=== PATIENT | male | born 1990 | race Caucasian/White ===

== ENCOUNTER 2024-03-27 03:37 | Emergency (ER) | payer OTHER, MEDICAID, SELFPAY ==
[2024-03-27 03:52] VITALS: PULSE 85; O2SAT 99
[2024-03-27 03:56] VITALS: BP 122/82; PULSE 86; RESP 16; TEMP 36.6; O2SAT 98; BMI 30.8
[2024-03-27 04:00] VITALS: BP 113/77; PULSE 85; O2SAT 97
[2024-03-27] MEDS: PROPARACAINE 0.5% OPHTH SOL 1 DROPS EYE-LEFT (04:10)
[2024-03-27] MEDS: FLUORESCEIN 1 MG STRIP EYE-LEFT (04:10)
[2024-03-27 04:30] VITALS: BP 117/61; PULSE 79; O2SAT 94
--- NOTE | 2024-03-27 04:47 | ED.EYEPROB ---
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 No welding or exposure to UV light. Since the injury he has had matting and discharge from the left eye. Denies loss of vision to left eye, but painful to open. Related Data Previous Rx's Medication Instructions Recorded erythromycin 5 mg/gram (0.5 %) eye 1 applic EYE-LEFT TID eye 03/27/24 ointment infection 7 days #3.5 grams Allergies Allergy/AdvReac Type Severity Reaction Status Date / Time No Known Drug Allergies Allergy Verified 03/27/24 04:15 Review of Systems Constitutional Constitutional: Denies chills, Denies fever(s) and Denies weakness Eyes Eyes: Denies loss of vision ENT Ears, Nose, Mouth, and Throat: Denies neck pain, Denies sore throat and Denies throat swelling Cardiovascular Cardiovascular: Denies chest pain and Denies dyspnea Respiratory Respiratory: Denies cough and Denies dyspnea Gastrointestinal Gastrointestinal: Denies abdominal pain and Denies nausea Musculoskeletal Musculoskeletal: Denies neck pain Integumentary/Breasts Skin/Breast: Denies rash Neurologic Neurologic: Denies loss of vision and Denies weakness Allergic/Immunologic Allergic/Immunologic: Denies urticaria and Denies throat swelling Patient History Social History Smoking Status: Never smoker Smoking Status: Never smoker alcohol intake frequency: a few times a week Substance Use Type: does not use Exam Initial Vital Signs Initial Vital Signs: Vital Signs Pulse Rate 85 03/27/24 03:52 Pulse Oximetry 99 03/27/24 03:52 Oxygen Delivery Method Room Air 03/27/24 03:52 Const General: cooperative Other: Uncomfortable appearing due to left eye pain and discharge symptoms HENMT Head: atraumatic Ears: external ears normal Nose: external nose normal Face and sinus: face symmetric Mouth: oral mucosae normal Teeth and gingiva: dentition normal Eyes Eyelids: eyelids normal Other: Discharge and discomfort from left eye as per HPI Chest Chest: normal inspection of the chest Resp Effort & Inspection: normal respiratory effort and no respiratory distress GI Inspection: non-distended Palpation: soft and No tender Skin General: no rashes or lesions noted Neuro General: patient alert and no focal motor deficits Psych Attitude: cooperative Judgment: judgment good Course Orders Ordered: ED Orders 03/27/24 04:50 Wound Culture and Gram Stain Stat Discontinued Medications Erythromycin (Erythromycin Ophth 1 Gm Oint) 1 applic EYE-LEFT NOW ONE Stop: 03/27/24 05:10 Last Admin: 03/27/24 05:24 Dose: 1 applic Fluorescein Sodium (Fluorescein 1 Mg Strip) 1 mg EYE-LEFT NOW ONE Stop: 03/27/24 04:06 Last Admin: 03/27/24 04:10 Dose: 1 mg Documented By: JEANIE Gentamicin Sulfate (Gentamicin 0.3% Ophth 5 Ml) 1 drops EYE-LEFT QID MIKAYLA Proparacaine HCl (Proparacaine 0.5% Ophth Radha) 1 drops EYE-LEFT NOW ONE Stop: 03/27/24 04:05 Last Admin: 03/27/24 04:10 Dose: 1 drop Documented By: JEANIE Reevaluation(s) Reevaluation #1: Wood's lamp fluorescein stain evaluation after topical anesthetic to left eye, some fluorescein uptake lateral sclera noted, no corneal abrasions obvious, no grossly obvious hyphema. Visual acuity noted per nursing notes. Discharge present left eye, swab sent for culture. Topical erythromycin 1st dose applied in ED, prescription for further course. Advised to follow up with eye clinic. Return precautions discussed. Vital Signs Vital signs: Vital Signs - 8 hr 03/27/24 03:52 03/27/24 03:56 03/27/24 04:00 Temperature 97.9 F Pulse Rate 85 86 Respiratory Rate 16 Blood Pressure 122/82 113/77 Pulse Oximetry 99 98 Oxygen Delivery Method Room Air Room Air 03/27/24 04:00 03/27/24 04:30 03/27/24 04:30 Temperature Pulse Rate 85 79 Respiratory Rate Blood Pressure 117/61 Pulse Oximetry 97 94 Oxygen Delivery Method Room Air 03/27/24 06:02 Temperature Pulse Rate 80 Respiratory Rate 18 Blood Pressure 139/74 Pulse Oximetry 99 Oxygen Delivery Method Room Air MDM - Eye Problem Differential Diagnosis Differential diagnosis: Likely corneal abrasion, acute iritis, corneal ulcer and ruptured globe Discharge Plan Departure Patient Disposition: Home Clinical Impression: Acute bacterial conjunctivitis of left eye, Abrasion of sclera of left eye Instructions: DI for Eye Contusion Activity Restrictions/Additional Instructions: 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 On fluorescein stain examination there did not seem to be any abrasion to the cornea part of the eye, slight uptake lateral aspect of the sclera (white) of the eye, possibly representing a small abrasion there. There was significant discharge however, culture swab was sent of the purulence sample. Topical erythromycin ointment 1st dose in ED, with prescription for further treatment. Follow up with local eye clinic the next couple of days. Return to the emergency department for any change worsening symptoms or any concerns prior Prescriptions: New erythromycin 5 mg/gram (0.5 %) ointment 1 applic EYE-LEFT TID 7 Days Qty: 3.5 0RF Stand Alone Forms: Patient Portal/API, Work Release Note
--- NOTE | 2024-03-27 05:10 | PC.NURSE ---
Irrigated left eye with 500ml NS. Patient tolerated well.
[2024-03-27] MEDS: ERYTHROMYCIN OPHTH 1 GM OINT 1 APPLIC EYE-LEFT (05:24)
[2024-03-27 06:02] VITALS: BP 139/74; PULSE 80; RESP 18; O2SAT 99
== END 2024-03-27 06:05 | disposition home or self-care (01) ==
PROVIDERS: Emergency Provider Emergency Medicine
DX: H10.32 Unspecified acute conjunctivitis, left eye (principal); S05.8X2A Other injuries of left eye and orbit, initial encounter
CPT/HCPCS: 87070; 87075; 87205; 99282; 99284

== ENCOUNTER 2024-08-11 03:04 | Emergency (ER) | payer OTHER, MEDICAID, SELFPAY ==
[2024-08-11] VITALS (13 sets, daily range): BP systolic 118–184; BP diastolic 75–121; PULSE 78–107; RESP 15–31; TEMP 36.6–37.4; O2SAT 98–100; BMI 30.7
--- NOTE | 2024-08-11 03:38 | EKG_ITS ---
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
--- NOTE | 2024-08-11 03:38 | ED_ITS ---
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 Denies neck pain or back pain. No headache. No weakness to face arm leg. No incontinence symptoms. No history of known CAD or aortic probelms. No history of spinal problems. No fevers, chills, cough, shortness of breath. Left chest pain some worse with isolated left arm movements. No falls, inuries or new activities. Related Data Home Medications Medication Instructions Recorded Confirmed dextroamphetamine-amphetamine 30 1 tab PO BID 07/10/24 07/10/24 mg tablet valacyclovir 500 mg tablet 500 mg PO BID 07/10/24 07/10/24 Previous Rx's Medication Instructions Recorded ondansetron 4 mg disintegrating 4 mg PO Q8H PRN nausea and 07/10/24 tablet vomiting #30 tabs Allergies Allergy/AdvReac Type Severity Reaction Status Date / Time No Known Drug Allergies Allergy Verified 07/10/24 12:00 Review of Systems Review of Systems Narrative: see HPI Patient History Social History Smoking Status: Never smoker Smoking Status: Never smoker alcohol intake frequency: a few times a week Substance Use Type: does not use Exam Narrative Exam Narrative: GENERAL: Well-developed patient, in mild distress. HEAD: Atraumatic. Normocephalic. EYES: Pupils equal round and reactive. Extraocular motions intact. No scleral icterus. No injection or drainage. ENT: Nose without bleeding, purulent drainage. Throat without erythema, tonsillar hypertrophy or exudate. Airway patent. NECK: Trachea midline. Non tender, moves neck easily CARDIOVASCULAR: Regular rate and rhythm without murmurs, gallops, or rubs. RESPIRATORY: Clear to auscultation. Breath sounds equal bilaterally. No wheezes, rales, or rhonchi. Mild tenderness left anterior chest, no skin changes or redness or vesicles or bruising or swelling. GASTROINTESTINAL: Abdomen soft, non-tender, nondistended. EXTREMITIES: No edema or joint tenderness. BACK: Nontender without deformity or crepitance. No flank tenderness. NEURO: AOx3. Motor functions grossly nonfocal SKIN: No rash or erythema of visible areas Initial Vital Signs Initial Vital Signs: Vital Signs Pulse Rate 98 H 08/11/24 03:27 Respiratory Rate 26 H 08/11/24 03:27 Pulse Oximetry 100 08/11/24 03:27 Course Orders Ordered: Discontinued Medications Aspirin (Aspirin 81 Mg Chew Tab) 324 mg PO NOW ONE Stop: 08/11/24 03:31 Last Admin: 08/11/24 04:03 Dose: Not Given Documented By: Haloperidol (Haloperidol 5 Mg/Ml Vial) 5 mg IM NOW ONE Stop: 08/11/24 03:53 Sodium Chloride (Normal Saline 0.9%) 1,000 mls @ 150 mls/hr IV CONT MIKAYLA Ketorolac Tromethamine (Ketorolac 30 Mg/Ml Vial) 15 mg IV NOW ONE Stop: 08/11/24 05:50 Last Admin: 08/11/24 05:52 Dose: 15 mg Documented By: Vital Signs Vital signs: Vital Signs - 8 hr 08/11/24 03:27 08/11/24 03:29 08/11/24 03:29 Temperature Pulse Rate 98 H 99 H Respiratory Rate 26 H 27 H Blood Pressure 123/91 H Pulse Oximetry 100 100 Oxygen Delivery Method 08/11/24 03:30 08/11/24 03:30 08/11/24 03:31 Temperature 98 F Pulse Rate 97 H 107 H Respiratory Rate 31 H 22 Blood Pressure 126/92 H 139/86 Pulse Oximetry 100 100 Oxygen Delivery Method Room Air Room Air 08/11/24 04:00 08/11/24 04:01 08/11/24 04:01 Temperature Pulse Rate 87 93 H Respiratory Rate 25 H 24 Blood Pressure 184/121 H Pulse Oximetry 99 100 Oxygen Delivery Method 08/11/24 04:41 08/11/24 05:00 08/11/24 05:06 Temperature Pulse Rate 88 84 Respiratory Rate 23 23 Blood Pressure 118/75 Pulse Oximetry 100 99 Oxygen Delivery Method 08/11/24 05:06 Temperature Pulse Rate 87 Respiratory Rate 22 Blood Pressure Pulse Oximetry 99 Oxygen Delivery Method Room Air MDM - Chest Pain Lab Data 08/11/24 03:43 08/11/24 03:43 Labs: Lab Results 08/11/24 08/11/24 Range/Units 03:43 05:55 WBC 9.0 (4.5-11.0) X10^3/uL RBC 5.77 (4.5-5.9) X10^6/uL Hgb 16.4 (13.5-17.5) g/dL Hct 47.6 (41-53) % MCV 82.4 (80-100) fL MCH 28.4 (26-34) PG MCHC 34.4 (30-36) % RDW 14.1 (11.6-14.8) % Plt Count 322 (150-400) X10^3/uL Neut % (Auto) 65.8 (50-75) % Lymph % (Auto) 23.4 L (25-40) % Rapides % (Auto) 6.6 (3-14) % Eos % (Auto) 1.0 L (2-4) % Baso % (Auto) 3.2 H (0-2) % Neut # (Auto) 5900 (3476-8940) /uL Lymph # (Auto) 2100 (0043-9368) /uL Rapides # (Auto) 600 (0-900) /uL Eos # (Auto) 100 (0-450) /uL Baso # (Auto) 300 H (0-100) /uL PT 12.2 (9.4-12.5) SECONDS INR 1.1 (0.9-1.3) APTT 35 (25.1-36.5) SECONDS Sodium 137 (137-145) mmol/L Potassium 3.7 (3.4-5.1) mmol/L Chloride 107 (98-107) mmol/L Carbon Dioxide 19 L (22-32) mmol/L BUN 16 (9-20) mg/dL Creatinine 1.05 (0.66-1.25) mg/dL Estimated GFR > 60 (>60) mL/min BUN/Creatinine Ratio 15.2 (6-22) Glucose 108 H (70-100) mg/dL Calcium 9.9 (8.4-10.2) mg/dL Magnesium 2.0 (1.6-2.3) mg/dL Total Bilirubin 1.6 H (0.2-1.3) mg/dL AST 51 (17-59) IU/L ALT 76 H (<50) IU/L Alkaline Phosphatase 98 (38-126) U/L Total Creatine Kinase 135 (55-170) U/L Troponin I < 0.012 < 0.012 (0.01-0.034) ng/mL NT-Pro-B Natriuret Pep < 20 (<125) pg/mL Total Protein 8.2 (6.3-8.2) g/dL Albumin 4.9 (3.5-5.0) g/dL Globulin 3.3 (1.7-4.1) g/dL Albumin/Globulin Ratio 1.5 (1.0-2.8) Lipase 187 (23-300) U/L ECG Data Attestation: I personally reviewed and interpreted this ECG as follows: Interpretation: Normal sinus rhythm rate 88, no obvious ST segment elevation changes. Diffuse T-wave flattening. OR 164, QRS 78, QTC 435. 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 Patient conerns about side effect testoserone. DDx consider ACS, spinal lesion/disc, aortic dissection, stroke, other. EKG without obvious ischemic changes. Trop negative. GFR normal. CT head without contrast. Impressions: ?No acute intracranial abnormality.? See tele radiology report. CT cervical spine. Impressions: ?Mild spondylotic changes of the cervical spine without acute traumatic injury. Left maxillary sinus disease.? See tele radiology report CT angiogram chest abdomen and pelvis. Impressions: ?No pulmonary embolism aortic dissection or aneurysm. No CT findings to explain left arm/left side numbness. ? See tele radiology report Repeat interval troponin also negative, unmeasurable. CT/CTA imaging without obvious brain, spinal, aortic etiologies of symptoms. IV Toradol given, symptoms resolved. Unclear cause symptoms, unclear if related at all to recent testosterone but consider avoiding for now. Possibly musculoskeletal if responsive to NASID, although could have had self limited spontaneous resolution of symptoms. Patient feels better, wants to go home. Further workup as outpatient for now. Return precautions discussed Critical Care Time Critical Care Time Critical Care Time: Yes Total Critical Care Time: 31 Attestation: The high probability of a clinically significant, sudden or life threatening deterioration of the [cardiopulmonary, neurologic, musculoskletal, vascular, spinocolumnar] system(s) required my full and direct attention, intervention and personal management. The aggregate critical care time was [31] minutes. This time is in addition to time spent performing reported procedures but includes the following: [x] Data Review and interpretation [x] Patient assessment and monitoring of vital signs [x] Documentation [x] Medication orders and management Discharge Plan Departure Patient Disposition: Home Clinical Impression: Atypical chest pain, Muscle strain Activity Restrictions/Additional Instructions: Left-sided chest pain with tingling left arm chest and upper torso onset symptoms hours prior to arrival. Screening EKG without obvious ischemic changes, serial blood tests did not show evidence of heart attack at this time. You did seem to have some tenderness to the left pectoralis muscle. It is possible to have muscle strain and associated irritation of nerves as cause of your symptoms. Screening chest x-ray unremarkable. CT chest abdomen and pelvis aortogram showed no aortic injuries, no acute pathology identified. IV Toradol given, improvement in symptoms. Take Motrin as needed for discomfort. Recheck symptoms if persisting next couple of days with your primary care provider. Return earlier to this/nearest emergency department for any change worsening symptoms or any concerns prior Prescriptions: No Action dextroamphetamine-amphetamine 30 mg tablet 1 tab PO BID valacyclovir 500 mg tablet 500 mg PO BID ondansetron 4 mg tablet,disintegrating 4 mg PO Q8H PRN (Reason: nausea and vomiting) Qty: 30 0RF Referrals: Miscellaneous,Doctor, [Primary Care Provider] - Stand Alone Forms: Patient Portal/API
--- NOTE | 2024-08-11 03:43 | DI.CT.S_ITS ---
PROCEDURE: CT ANGIO CHEST ABDOMEN PELVIS INDICATIONS: chest pain TECHNIQUE: Precontrast 5 mm thick sections acquired from the lung apices to the iliac crests. After the administration of intravenous contrast, 2.5 mm thick sections again acquired from the lung apices to the iliac crests. Maximum intensity projection (MIP) oblique sagittal and coronal reformats were then acquired. For radiation dose reduction, the following was used: automated exposure control. COMPARISON: [facility], CT, CT ABDOMEN PELVIS WITH CONTRAST, 01/27/2024, 18:06. FINDINGS: Image quality: Diagnostic. AORTA: No aortic aneurysm. No acute aortic syndrome. CHEST: Lower Neck: No enlarged lymph nodes. Thyroid: No thyroid nodules which require sonographic follow up, per consensus guidelines. Axillae: No enlarged lymph nodes. Chest Wall: Unremarkable. Visualized osseous structures appear intact without acute fracture or focal destructive lesion. No acute compression fractures of the imaged spine. Lungs and Pleura: No pneumothorax or pleural effusions. No consolidation or suspicious nodules. Heart: Heart size is normal. No pericardial effusion. Thoracic Vessels: Pulmonary arteries demonstrate normal size. No evidence for acute pulmonary embolism. Mediastinum and Sylvie: No enlarged lymph nodes. Esophagus: No wall thickening. Small hiatal hernia. ABDOMEN: Liver: No solid mass. Gallbladder: Status post cholecystectomy. Biliary ducts: No biliary dilation. Pancreas: Homogeneous enhancement without focal lesions or pancreatic ductal dilatation. No peripancreatic inflammation or organized fluid collections. Spleen: Splenomegaly. Adrenal Glands: No adrenal nodules. Kidneys and Ureters: No hydronephrosis. No solid mass. No complex renal cystic lesion which requires follow up. Stomach and Bowel: Mild circumferential wall thickening of the descending and sigmoid colon likely related to incomplete distension. No significant pericolonic inflammatory changes. No evidence for small bowel obstruction or associated inflammatory changes. No gastric distension. Normal appendix. Peritoneum: No abnormal intraperitoneal fluid. No free air. Ventral Wall: There is a fat-containing umbilical hernia without acute inflammation. Abdominal Nodes: No retroperitoneal or mesenteric adenopathy by size criteria. Vessels: Inferior vena cava is normal in size. PELVIS: Pelvic Organs: Unremarkable. Bladder: Unremarkable. Pelvic Nodes: No enlarged lymph nodes. Miscellaneous: No inguinal hernias are seen. Bones: Unremarkable. Visualized osseous structures appear intact without acute fracture or focal destructive lesion. No acute compression fractures of the imaged spine. IMPRESSION: CT chest, abdomen, and pelvis without acute abnormality explain patient's left-sided numbness. Specifically, no evidence for aneurysmal dilatation of the thoracic/abdominal aorta or evidence for aortic dissection. No evidence for pulmonary embolism. Status post cholecystectomy. Small hiatal hernia. Mild circumferential wall thickening of the descending and sigmoid colon likely related to incomplete distension. No significant pericolonic stranding. Normal appendix. Fat containing umbilical hernia without acute inflammation. No significant discrepancy with the hourly shift manager radiology preliminary report. Dictated by: Neeraj Chou M.D. on 08/11/2024 at 8:35 Approved by: Neeraj Chou M.D. on 08/11/2024 at 8:46
--- NOTE | 2024-08-11 03:51 | DI.CT.S_ITS ---
PROCEDURE: CT HEAD/BRAIN WO CON INDICATIONS: left sided numbness TECHNIQUE: Noncontrast 4.5 mm thick angled axial sections acquired from the foramen magnum to the vertex, with coronal and sagittal reformats. For radiation dose reduction, the following was used: automated exposure control, adjustment of mA and/or kV according to patient size. COMPARISON: None. FINDINGS: Image quality: Diagnostic. CSF spaces: Basal cisterns are patent. No extra-axial fluid collections. Ventricles are normal in size and shape. Brain: No midline shift. No intracranial masses or hemorrhage. Cheek-white matter interface is normal. Skull and face: Calvarium and visualized facial bones are intact, without suspicious lesions. Sinuses: Visualized sinuses and mastoids are clear. IMPRESSION: CT head without acute intracranial abnormalities. No mass or mass effect visualized. Dictated by: Neeraj Chou M.D. on 08/11/2024 at 7:05 Approved by: Neeraj Chou M.D. on 08/11/2024 at 7:06
--- NOTE | 2024-08-11 03:54 | DI.CT.S_ITS ---
PROCEDURE: CT CERVICAL SPINE WO CON INDICATIONS: left sided numbness arms legs TECHNIQUE: Noncontrast 3 mm thick sections acquired from the skull base to the T4 level. Sagittal and coronal reformats were then constructed. For radiation dose reduction, the following was used: automated exposure control, adjustment of mA and/or kV according to patient size. COMPARISON: None. FINDINGS: Image quality: Diagnostic. Bones: No fractures or dislocations. Visualized superior ribs are intact. No acute fractures or dislocations. No acute compression fractures of the vertebral bodies. Craniocervical junction is intact. C1-C2 relationship is preserved. Visualized superior ribs are intact. Straightening of cervical lordosis which may be due to patient positioning and/or concurrent muscle spasms. Multilevel cervical spondylosis. Soft tissues: Prevertebral soft tissues are normal in thickness. No paravertebral hematomas. No apical pneumothoraces. Left maxillary sinus disease. IMPRESSION: No displaced fracture or traumatic subluxation. Mild straightening of normal cervical lordosis likely related to positioning and/or concurrent muscle spasms. Multilevel cervical spondylosis. Left maxillary sinus disease. No significant discrepancy with the shift mechanic radiology preliminary report. Dictated by: Neeraj Chou M.D. on 08/11/2024 at 7:06 Approved by: Neeraj Chou M.D. on 08/11/2024 at 7:09
[2024-08-11 03:57] LABS: Add Manual Diff / Slide Review NO; Basophils Absolute Auto 300 /uL (0-100); Basophils Percent Auto 3.2 % (0-2); Eosinophils Absolute Auto 100 /uL (0-450); Hematocrit 47.6 % (41-53); Hemoglobin 16.4 g/dL (13.5-17.5); Lymphocytes Absolute Auto 2100 /uL (1100-4500); Lymphocytes Percent Auto 23.4 % (25-40); Mean Corpuscular HGB Conc 34.4 % (30-36); Mean Corpuscular Hemoglobin 28.4 PG (26-34); Mean Corpuscular Volume 82.4 fL (80-100); Monocytes Absolute Auto 600 /uL (0-900); Monocytes Percent Auto 6.6 % (3-14); Neutrophils Absolute Auto 5900 /uL (1500-7000); Neutrophils Percent Auto 65.8 % (50-75); Platelet Count 322 X10^3/uL (150-400); Red Blood Cell Count 5.77 X10^6/uL (4.5-5.9); Red Cell Distribution Width 14.1 % (11.6-14.8)
[2024-08-11 04:17] LABS: INR 1.1 (0.9-1.3); Prothrombin Time 12.2 SECONDS (9.4-12.5)
[2024-08-11 04:20] LABS: PTT Partial Thromboplastin Tim 35 SECONDS (25.1-36.5)
[2024-08-11 04:21] LABS: Alanine Aminotransferase 76 IU/L (<50); Albumin 4.9 g/dL (3.5-5.0); Albumin Globulin Ratio 1.5 (1.0-2.8); Alkaline Phosphatase 98 U/L (38-126); Aspartate Aminotransferase 51 IU/L (17-59); BUN Creatinine Ratio 15.2 (6-22); Bilirubin Total 1.6 mg/dL (0.2-1.3); Blood Urea Nitrogen 16 mg/dL (9-20); Calcium 9.9 mg/dL (8.4-10.2); Carbon Dioxide 19 mmol/L (22-32); Chloride 107 mmol/L (98-107); Creatine Kinase 135 U/L (55-170); Estimated Glomerular Filt Rate > 60 mL/min (>60); Globulin 3.3 g/dL (1.7-4.1); Glucose 108 mg/dL (70-100); HEMOLYSIS < 15 (0-50); Lipase 187 U/L (23-300); Potassium 3.7 mmol/L (3.4-5.1); Sodium 137 mmol/L (137-145); Total Protein 8.2 g/dL (6.3-8.2)
[2024-08-11 04:32] LABS: NT-proBNP (BNP-Adult 18+) < 20 pg/mL (<125); Troponin I < 0.012 ng/mL (0.01-0.034)
--- NOTE | 2024-08-11 04:35 | PC.NURSE ---
Pt BP 184/102. Dr Leiva notified.
[2024-08-11] MEDS: KETOROLAC 30 MG/ML VIAL 15 MG IV (05:52)
[2024-08-11 06:36] LABS: Troponin I < 0.012 ng/mL (0.01-0.034)
== END 2024-08-11 06:52 | disposition home or self-care (01) ==
PROVIDERS: Emergency Provider Emergency Medicine
DX: R07.89 Other chest pain (principal); T14.8XXA Other injury of unspecified body region, initial encounter; Z79.890 Hormone replacement therapy
CPT/HCPCS: 36415; 70450; 71275; 72125; 74174; 80053; 82550; 83690; 83735; 83880; 84484; 85025; 85610; 85730; 93005; 93010; 96374; 99284; J1885; Q9967

== ENCOUNTER 2024-09-29 07:17 | Emergency (ER) | payer OTHER, MEDICAID, SELFPAY ==
[2024-09-29 07:24] VITALS: BP 121/81; PULSE 85; RESP 18; TEMP 36.2; O2SAT 98; BMI 30.7
--- NOTE | 2024-09-29 07:44 | ED.URI ---
HPI - URI/Sore Throat General Chief Complaint: Upper Respiratory Symptoms Stated Complaint: Sinus pain, Congestion Time Seen by Provider: 09/29/24 07:23 Source: patient Mode of arrival: Ambulatory History of Present Illness HPI Narrative: Otherwise healthy 34-year-old gentleman no history of asthma presents with 3-4 days of upper respiratory congestion, sinuses without drainage, no significant throat pain some mild chest tightness minimal cough no fevers he has not had similar symptoms recently. He is concerned as his is currently and he wants to make sure that he has not causing an infection risk for her. Related Data Home Medications Medication Instructions Recorded Confirmed dextroamphetamine-amphetamine 30 1 tab PO BID 07/10/24 07/10/24 mg tablet valacyclovir 500 mg tablet 500 mg PO BID 07/10/24 07/10/24 Previous Rx's Medication Instructions Recorded ondansetron 4 mg disintegrating 4 mg PO Q8H PRN nausea and 07/10/24 tablet vomiting #30 tabs Allergies Allergy/AdvReac Type Severity Reaction Status Date / Time No Known Drug Allergies Allergy Verified 07/10/24 12:00 Review of Systems Constitutional Comments: Pertinent positive and negative findings as per HPI Patient History Social History Smoking Status: Never smoker Smoking Status: Never smoker alcohol intake frequency: a few times a week Substance Use Type: does not use Exam Initial Vital Signs Initial Vital Signs: Vital Signs Temperature 97.2 F L 09/29/24 07:24 Pulse Rate 85 09/29/24 07:24 Respiratory Rate 18 09/29/24 07:24 Blood Pressure 121/81 09/29/24 07:24 Pulse Oximetry 98 09/29/24 07:24 Oxygen Delivery Method Room Air 09/29/24 07:24 General: Healthy appearing, in no acute distress. Able to give a complete and coherent history. Well-nourished well-developed HEENT: Moist mucous membranes, normal sclera with reactive pupils, minor tenderness over frontal sinuses Neck: No cervical adenopathy Respiratory: Lungs are clear to auscultation, no wheezing no rales no rhonchi. Full and symmetrical air movement Cardiac: Regular rate and rhythm no murmurs no bruits Skin: Warm and dry, no rashes Neurologic: Grossly neurologically intact with no obvious asymmetries or abnormalities Psych: Cooperative, appropriate insight and affect Course Vital Signs Vital signs: Vital Signs - 8 hr 09/29/24 07:24 Temperature 97.2 F L Pulse Rate 85 Respiratory Rate 18 Blood Pressure 121/81 Pulse Oximetry 98 Oxygen Delivery Method Room Air MDM - URI/Sore Throat MDM Narrative Medical decision making narrative: 34-year-old gentleman with mild upper respiratory symptoms mostly sinus causing some snoring, looking for suggestions regarding symptomatic treatment. We reviewed saline wash, Sudafed use, Afrin use, anticipated course of recovery, as well as the contraindications for any antibiotics at this time. He will give all of the [id number] treatments a try. At this point there was no indication for lab work, imaging or hospitalization. Questions are answered and he is safe for discharge Discharge Plan Departure Patient Disposition: Home Clinical Impression: Upper respiratory infection Qualifiers: URI type: unspecified viral URI Qualified Code(s): J06.9 - Acute upper respiratory infection, unspecified Instructions: DI for Viral Upper Respiratory Infection -- Adult Activity Restrictions/Additional Instructions: Thank you for coming in today I am sorry that you are suffering with all this sinus congestion. Unfortunately this is a virus, it is going to pass all by itself but it is still going to take another 5 days or so. You likely are still infectious so doing what you can to minimize sneezing and close contact will help avoid transmitting this Using 400 mg of ibuprofen (2 [id number] pills) and 1 Tylenol every 6 hours can be very helpful in controlling pain. For sinus congestion, try pseudofed. This is available zrzz-wvy-yoklria however, you will need to ask the pharmacist for it. I would recommend using the 12 our version 1st thing in the morning, the shorter, 4-6 our version around dinnertime. If you take it too close to bedtime you are not going to sleep well For a couple of days it is safe to use Afrin nasal spray particularly before bed. This helps reduce the swelling in your nose and sinuses so that you are able to breathe and sleep better Consider using a nasal saline rinse product such as Netti Pot. This actually physically rinses out your sinuses which improves overall symptom control If you feel that you are getting worse, worsening headaches developing fevers, new symptoms please feel free to return to the ER Prescriptions: No Action dextroamphetamine-amphetamine 30 mg tablet 1 tab PO BID valacyclovir 500 mg tablet 500 mg PO BID ondansetron 4 mg tablet,disintegrating 4 mg PO Q8H PRN (Reason: nausea and vomiting) Qty: 30 0RF Stand Alone Forms: Patient Portal/API/Survey
== END 2024-09-29 08:02 | disposition home or self-care (01) ==
PROVIDERS: Emergency Provider Emergency Medicine
DX: J06.9 Acute upper respiratory infection, unspecified (principal); R07.89 Other chest pain
CPT/HCPCS: 99281; 99282

== ENCOUNTER 2024-10-20 08:07 | Emergency (ER) | payer OTHER, MEDICAID, SELFPAY ==
[2024-10-20] VITALS (7 sets, daily range): BP systolic 110–124; BP diastolic 63–82; PULSE 82–95; RESP 16–18; TEMP 36.4; O2SAT 97–100; BMI 31.2
--- NOTE | 2024-10-20 08:26 | ED_ITS ---
HPI - SOB/Dyspnea General Chief Complaint: Shortness of Breath/Dyspnea Stated Complaint: per pt has fluid in lungs/pneumonia Time Seen by Provider: 10/20/24 08:25 Source: patient, RN notes reviewed and old records reviewed Mode of arrival: Ambulatory Limitations: no limitations History of Present Illness HPI Narrative: 34-year-old male presents with a about 6 days of wheezing and ?fluid in his chest?. Patient states no fevers recently. He has had increasing wheezing and shortness of breath. He has had productive cough with green. States he does have some chest discomfort in the upper chest and a little bit around to the back. He states no new swelling in his extremities. No nasal congestion. No sore throat. No nausea or vomiting. No diarrhea or constipation. No urinary symptoms. States once before he has had similar symptoms ended up getting breathing treatment and steroids which was very helpful. Patient states he is currently on omeprazole only medication. He has a hiatal hernia that he has follow up to get repaired. He has had prior cholecystectomy. States stopped vaping who week ago. Denies any daily alcohol, denies any recreational drugs. Denies any prior history of known asthma or chronic reactive airway but states that he did vape for awhile. Related Data Home Medications Medication Instructions Recorded Confirmed dextroamphetamine-amphetamine 30 1 tab PO BID 07/10/24 07/10/24 mg tablet valacyclovir 500 mg tablet 500 mg PO BID 07/10/24 07/10/24 Previous Rx's Medication Instructions Recorded ondansetron 4 mg disintegrating 4 mg PO Q8H PRN nausea and 07/10/24 tablet vomiting #30 tabs albuterol sulfate 90 mcg/actuation 2 inh inhalation Q4H PRN shortness 10/20/24 breath activated powder inhaler of breath or wheezing #1 ea azithromycin 250 mg tablet See Rx Instructions PO .COMPLEX #6 10/20/24 tabs prednisone 10 mg tablets in a dose See Rx Instructions PO .COMPLEX 10/20/24 pack #21 ea Allergies Allergy/AdvReac Type Severity Reaction Status Date / Time No Known Drug Allergies Allergy Verified 07/10/24 12:00 Review of Systems Review of Systems ROS Unobtainable: All systems reviewed & are unremarkable except as noted in HPI and below Patient History Social History Smoking Status: Former smoker Smoking Status: Former smoker alcohol intake frequency: 0-2 drinks per day Substance Use Type: does not use Exam Narrative Exam Narrative: GEN: well nourished, well appearing male, alert and oriented x 3, patient appears to be in mild distress. HEENT: Atraumatic, pupils are equal round reactive to light, extraocular movements are intact, nares are clear, there is no conjunctival pallor. Throat is clear without any exudates, erythema, tonsillar enlargement or uvular deviation HEART: Regular rate and rhythm without murmur, clicks, rubs. LUNGS:Lungs good breath sounds bilaterally, mild bilateral expiratory wheezes, no rales, positive for rhonchi, crackles, chest moves symmetrically, no tachypnea or accessory muscle use ABD:bowel sounds normal, soft, non-tender, no guarding, rebound, rigidity, no masses noted, no hepatosplenomegaly :No CVA tenderness MSCL: Non-tender, no muscle atrophy, muscles strength 5/5 upper and lower extremities, full range of motion, normal gait NEURO:CN 2-12 intact, sensation normal Initial Vital Signs Initial Vital Signs: Vital Signs Temperature 97.6 F 10/20/24 08:17 Pulse Rate 84 10/20/24 08:17 Respiratory Rate 16 10/20/24 08:17 Blood Pressure 124/78 10/20/24 08:17 Pulse Oximetry 98 10/20/24 08:17 Oxygen Delivery Method Room Air 10/20/24 08:17 Course Orders Ordered: Discontinued Medications Albuterol/Ipratropium (Albuterol/Ipratropium 3 Ml Ampul) 3 ml INH NOW ONE Stop: 10/20/24 08:35 Last Admin: 10/20/24 08:49 Dose: 3 ml Documented By: TRISTAN Prednisone (Prednisone 20 Mg Tablet) 60 mg PO NOW ONE Stop: 10/20/24 08:35 Last Admin: 10/20/24 08:39 Dose: 60 mg Documented By: TUCKER Vital Signs Vital signs: Vital Signs - 8 hr 10/20/24 08:17 10/20/24 08:17 10/20/24 08:18 Temperature 97.6 F Pulse Rate 84 87 Respiratory Rate 16 Blood Pressure 124/78 124/78 Pulse Oximetry 98 97 Oxygen Delivery Method Room Air Oxygen Flow Rate Fraction of Inspired Oxygen 10/20/24 08:18 10/20/24 08:30 10/20/24 08:30 Temperature Pulse Rate 86 92 H Respiratory Rate Blood Pressure 113/82 Pulse Oximetry 98 98 Oxygen Delivery Method Oxygen Flow Rate Fraction of Inspired Oxygen 10/20/24 08:50 Temperature Pulse Rate 82 Respiratory Rate 18 Blood Pressure Pulse Oximetry 100 Oxygen Delivery Method Room Air Oxygen Flow Rate 0 Fraction of Inspired Oxygen 21 MDM - SOB/Dyspnea Imaging Data Chest x-ray: Radiologist's Impression: [address] [address] XRay Report Signed Patient: August Blankenship MR#: [id number] : 1990 Acct:[id number] Age/Sex: 34 / M Date of Service: 10/20/24 Loc: ED Accession Number: [id number] Procedure: XR chest 2V Ordering Provider: Franci Hawley D.O. PROCEDURE: XR CHEST 2V INDICATIONS: wheeze, rhonchi, green sputum x 6 days TECHNIQUE: 2 views of the chest were acquired. COMPARISON: None. FINDINGS: Surgical changes and devices: None. Lungs and pleura: Mild consolidation of the left lower lobe, posterior to the diaphragm. Mediastinum: Mediastinal contours are normal. Heart size is normal. Bones and chest wall: No suspicious bony abnormalities. Soft tissues appear unremarkable. IMPRESSION: Mild consolidation of the left lower lobe, posterior to the diaphragm. Findings are concerning for pneumonia. Dictated by: Mac Barros M.D. on 10/20/2024 at 9:57 Approved by: Mac Barros M.D. on 10/20/2024 at 9:58 [facility] Narrative Medical decision making narrative: 34-year-old male history of GERD on exam does have expiratory wheezes not so much crackles more rhonchi on exam but he has a picture of his sputum which is clearly green has had about 6 days if symptoms. No fevers that he is aware and no upper respiratory nasal congestion on exam or by history. Patient does note he has a history of vaping has had 1 prior episode where he required steroids and albuterol. Chest x-ray obtained to evaluate for potential pneumonia versus bronchitis. est x-ray shows some left lower lobe consolidation consistent with potential pneumonia Patient was given DuoNeb and oral prednisone on recheck. Wheezes improved although still present. Patient had some improvement. Patient has not been hypoxic no respiratory distress, we will discharge home with albuterol prednisone and azithromycin for community-acquired pneumonia. Discharge Plan Departure Patient Disposition: Home Clinical Impression: Pneumonia Activity Restrictions/Additional Instructions: Follow up for recheck in the next 2-3 days if you are not having any improvement in your symptoms. Your imaging does show some consolidation or signs consistent with a pneumonia in the left side of your chest x-ray. You can use albuterol 2-4 puffs every 4 hours as needed for wheezing, use with a spacer. Can take prednisone until completed. Take oral antibiotics until completed. [facility] in [place]. Please return if you are having worsening chest pain, shortness of breath, coughing up blood, lightheadedness or passing out, fevers, new swelling in your extremities or other new or concerning changes. Prescriptions: New azithromycin 250 mg tablet See Rx Instructions .ROUTE .COMPLEX Qty: 6 0RF Rx Instructions: For 250 mg dose pack: take 500 mg today (day 1), then 250 mg for 4 days (days 2-5) prednisone 10 mg tablets,dose pack See Rx Instructions .ROUTE .COMPLEX Qty: 21 0RF Rx Instructions: orally per package directions albuterol sulfate 90 mcg/actuation aerosol powdr breath activated 2 inh inhalation Q4H PRN (Reason: shortness of breath or wheezing) Qty: 1 0RF No Action dextroamphetamine-amphetamine 30 mg tablet 1 tab PO BID valacyclovir 500 mg tablet 500 mg PO BID ondansetron 4 mg tablet,disintegrating 4 mg PO Q8H PRN (Reason: nausea and vomiting) Qty: 30 0RF Referrals: Joshua Fernandez PA-C [Primary Care Provider] - Stand Alone Forms: Patient Portal/API/Survey
--- NOTE | 2024-10-20 08:34 | DI.RAD.S_ITS ---
PROCEDURE: XR CHEST 2V INDICATIONS: wheeze, rhonchi, green sputum x 6 days TECHNIQUE: 2 views of the chest were acquired. COMPARISON: None. FINDINGS: Surgical changes and devices: None. Lungs and pleura: Mild consolidation of the left lower lobe, posterior to the diaphragm. Mediastinum: Mediastinal contours are normal. Heart size is normal. Bones and chest wall: No suspicious bony abnormalities. Soft tissues appear unremarkable. IMPRESSION: Mild consolidation of the left lower lobe, posterior to the diaphragm. Findings are concerning for pneumonia. Dictated by: Mac Barros M.D. on 10/20/2024 at 9:57 Approved by: Mac Barros M.D. on 10/20/2024 at 9:58
[2024-10-20] MEDS: predniSONE 20 MG TABLET 60 MG PO (08:39)
[2024-10-20] MEDS: ALBUTEROL/IPRATROPIUM 3 ML AMPUL INH (08:49)
== END 2024-10-20 10:26 | disposition home or self-care (01) ==
PROVIDERS: Emergency Provider Emergency Medicine; PCP Physician Assistant Medical
DX: J18.9 Pneumonia, unspecified organism (principal); R06.02 Shortness of breath
CPT/HCPCS: 71046; 94640; 99283

== ENCOUNTER 2024-10-26 20:50 | Emergency (ER) | payer OTHER, MEDICAID, SELFPAY ==
--- NOTE | 2024-10-26 20:53 | DI.RAD.S_ITS ---
PROCEDURE: XR CHEST 2V INDICATIONS: PNEUMONIA 1WK AGO, NOT IMPROVING TECHNIQUE: 2 views of the chest were acquired. COMPARISON: [facility], CT, CT ANGIO CHEST ABDOMEN PELVIS, 08/11/2024, 4:05. [facility], CR, XR CHEST 2V, 10/20/2024, 9:42. FINDINGS: Surgical changes and devices: None. Lungs and pleura: No consolidation identified. No pleural effusions or pneumothorax. Mediastinum: Mediastinal contours are normal. Heart size is normal. Bones and chest wall: No suspicious bony abnormalities. Soft tissues appear unremarkable. IMPRESSION: No consolidation identified. CT chest could be considered for further evaluation. Dictated by: Heron Juares M.D. on 10/26/2024 at 21:32 Approved by: Heron Juares M.D. on 10/26/2024 at 21:35
[2024-10-26 20:54] VITALS: BP 143/101; PULSE 98; O2SAT 98
[2024-10-26 20:57] VITALS: BP 143/101; PULSE 87; RESP 20; TEMP 36.6; O2SAT 99; BMI 31.2
[2024-10-26 21:00] VITALS: PULSE 100; O2SAT 95
--- NOTE | 2024-10-26 21:10 | ED.URI ---
HPI - URI/Sore Throat General Chief Complaint: Shortness of Breath/Dyspnea Stated Complaint: pneumonia, was here 1 wk ago, meds not working Time Seen by Provider: 10/26/24 20:52 Source: patient Mode of arrival: Ambulatory History of Present Illness HPI Narrative: 34-year-old male presents for persistent cough. He was seen on 11-11 for cough and ?fluid on the lungs?. He was found to have left-sided pneumonia and discharged on azithromycin and prednisone. Patient states that he was taking these medications as prescribed and is on his last day of treatment. He has persistent cough and is concerned that he was not cleared the infection. Denies fevers. Related Data Home Medications Medication Instructions Recorded Confirmed dextroamphetamine-amphetamine 30 1 tab PO BID 07/10/24 07/10/24 mg tablet valacyclovir 500 mg tablet 500 mg PO BID 07/10/24 07/10/24 Previous Rx's Medication Instructions Recorded ondansetron 4 mg disintegrating 4 mg PO Q8H PRN nausea and 07/10/24 tablet vomiting #30 tabs albuterol sulfate 90 mcg/actuation 2 inh inhalation Q4H PRN shortness 10/20/24 breath activated powder inhaler of breath or wheezing #1 ea azithromycin 250 mg tablet See Rx Instructions PO .COMPLEX #6 10/20/24 tabs prednisone 10 mg tablets in a dose See Rx Instructions PO .COMPLEX 10/20/24 pack #21 ea doxycycline hyclate 100 mg tablet 100 mg PO BID #10 tabs 10/26/24 Allergies Allergy/AdvReac Type Severity Reaction Status Date / Time No Known Drug Allergies Allergy Verified 07/10/24 12:00 Patient History Social History Smoking Status: Former smoker Smoking Status: Former smoker alcohol intake frequency: 0-2 drinks per day Exam Initial Vital Signs Initial Vital Signs: Vital Signs Pulse Rate 98 H 10/26/24 20:54 Blood Pressure 143/101 H 10/26/24 20:54 Pulse Oximetry 98 10/26/24 20:54 Const: Awake, alert, no acute distress, nontoxic appearing Cardiac: regular rate, regular rhythm RESP: unlabored, questionable trace rhonchi LLL, no wheezing Skin: Warm, Dry, intact, no rashes Neuro: AO x3, CN II-XII grossly intact, moves all extremities Course Orders Ordered: ED Orders 10/26/24 20:53 Chest [XR chest 2V] Stat Discontinued Medications Albuterol/Ipratropium (Albuterol/Ipratropium 3 Ml Ampul) 3 ml INH NOW ONE Stop: 10/26/24 21:16 Last Admin: 10/26/24 21:27 Dose: 3 ml Vital Signs Vital signs: Vital Signs - 8 hr 10/26/24 20:54 10/26/24 20:54 10/26/24 20:57 Temperature 97.8 F Pulse Rate 98 H 87 Respiratory Rate 20 Blood Pressure 143/101 H 143/101 H Pulse Oximetry 98 99 Oxygen Delivery Method Room Air 10/26/24 21:00 10/26/24 21:28 Temperature Pulse Rate 100 H 88 Respiratory Rate 16 Blood Pressure Pulse Oximetry 95 99 Oxygen Delivery Method Room Air Room Air MDM - URI/Sore Throat Differential Diagnosis Differential diagnosis: Likely upper respiratory infection, viral infection and bronchitis Imaging Data Chest x-ray: Radiologist's Impression: PROCEDURE: XR CHEST 2V INDICATIONS: PNEUMONIA 1WK AGO, NOT IMPROVING TECHNIQUE: 2 views of the chest were acquired. COMPARISON: [facility], CT, CT ANGIO CHEST ABDOMEN PELVIS, 08/11/2024, 4:05. [facility], CR, XR CHEST 2V, 10/20/2024, 9:42. FINDINGS: Surgical changes and devices: None. Lungs and pleura: No consolidation identified. No pleural effusions or pneumothorax. Mediastinum: Mediastinal contours are normal. Heart size is normal. Bones and chest wall: No suspicious bony abnormalities. Soft tissues appear unremarkable. IMPRESSION: No consolidation identified. CT chest could be considered for further evaluation. Dictated by: Heron Juares M.D. on 10/26/2024 at 21:32 Approved by: Heron Juares M.D. on 10/26/2024 at 21:35 [facility] Narrative Medical decision making narrative: Patient with a persistent cough and wheezing. On my exam I do not hear any wheezing, however he may have cleared the wheezing after a coughing spell. There are questionable rhonchi in the left lower lobe. Vital signs unremarkable. Chest x-ray shows improvement compared to prior, however since patient is reporting persistent symptoms out of precaution and additional round of antibiotics we will be sent to the pharmacy. Patient was counseled to pickup his inhaler from the pharmacy as previously prescribed. If he was not notice improvement with these medications then he may need additional testing and imaging. Patient informed of imaging findings, in agreement with the plan. Discharge Plan Departure Patient Disposition: Home Clinical Impression: Pneumonia Instructions: DI for Pneumonia -- Adult Activity Restrictions/Additional Instructions: Your x-rays show that your pneumonia is improving. As a precaution we will continue your antibiotics for another 5 days. superintendent terminal the inhaler at the pharmacy as well. If you continue to have symptoms even after this treatment then additional testing may be needed. Prescriptions: New doxycycline hyclate 100 mg tablet 100 mg PO BID Qty: 10 0RF No Action dextroamphetamine-amphetamine 30 mg tablet 1 tab PO BID valacyclovir 500 mg tablet 500 mg PO BID ondansetron 4 mg tablet,disintegrating 4 mg PO Q8H PRN (Reason: nausea and vomiting) Qty: 30 0RF azithromycin 250 mg tablet See Rx Instructions .ROUTE .COMPLEX Qty: 6 0RF Rx Instructions: For 250 mg dose pack: take 500 mg today (day 1), then 250 mg for 4 days (days 2-5) prednisone 10 mg tablets,dose pack See Rx Instructions .ROUTE .COMPLEX Qty: 21 0RF Rx Instructions: orally per package directions albuterol sulfate 90 mcg/actuation aerosol powdr breath activated 2 inh inhalation Q4H PRN (Reason: shortness of breath or wheezing) Qty: 1 0RF Referrals: Joshua Fernandez PA-C [Primary Care Provider] - Stand Alone Forms: Patient Portal/API/Survey
[2024-10-26] MEDS: ALBUTEROL/IPRATROPIUM 3 ML AMPUL INH (21:27)
[2024-10-26 21:28] VITALS: PULSE 88; RESP 16; O2SAT 99
[2024-10-26 21:30] VITALS: PULSE 95; RESP 18; O2SAT 94
[2024-10-26 22:00] VITALS: BP 128/83; PULSE 90; RESP 18; O2SAT 95
== END 2024-10-26 22:03 | disposition home or self-care (01) ==
PROVIDERS: Emergency Provider Emergency Medicine; PCP Physician Assistant Medical
DX: J18.9 Pneumonia, unspecified organism (principal)
CPT/HCPCS: 71046; 94640; 99283

== ENCOUNTER 2025-02-05 03:39 | Emergency (ER) | payer MEDICAID, SELFPAY ==
[2025-02-05] VITALS (8 sets, daily range): BP systolic 156; BP diastolic 99; PULSE 67–99; RESP 16–18; TEMP 37.1; O2SAT 93–100; BMI 30.7
--- NOTE | 2025-02-05 03:41 | ED_ITS ---
HPI - Abdominal Pain General Chief Complaint: Abdominal Pain Stated Complaint: swelling on rt side abd Time Seen by Provider: 02/05/25 03:41 History of Present Illness HPI narrative: Patient is a 34-year-old male past medical history of ADD, GERD, comes into the ED from home for evaluation of right-sided abdominal pain swelling, he states that he woke up at around 11:30 p.m. yesterday started noticing some pain to the right side of his abdomen felt like it is swelling. He states he has had his gallbladder removed, had a normal bowel movement yesterday. He does endorse some nausea no vomiting. Denies any other symptoms headache visual disturbances chest pain fever chills or any other GI/ symptoms at this time. States that nothing is making it better or worse therefore decided into the for further evaluation treatment. Related Data Home Medications Medication Instructions Recorded Confirmed dextroamphetamine-amphetamine 30 1 tab PO BID 07/10/24 07/10/24 mg tablet valacyclovir 500 mg tablet 500 mg PO BID 07/10/24 07/10/24 Previous Rx's Medication Instructions Recorded ondansetron 4 mg disintegrating 4 mg PO Q8H PRN nausea and 07/10/24 tablet vomiting #30 tabs albuterol sulfate 90 mcg/actuation 2 inh inhalation Q4H PRN shortness 10/20/24 breath activated powder inhaler of breath or wheezing #1 ea azithromycin 250 mg tablet See Rx Instructions PO .COMPLEX #6 10/20/24 tabs prednisone 10 mg tablets in a dose See Rx Instructions PO .COMPLEX 10/20/24 pack #21 ea doxycycline hyclate 100 mg tablet 100 mg PO BID #10 tabs 10/26/24 Allergies Allergy/AdvReac Type Severity Reaction Status Date / Time No Known Drug Allergies Allergy Verified 07/10/24 12:00 Review of Systems Review of Systems Narrative: General: Denies fever, chills, weight loss HEENT: Denies headache, eye drainage, eye irritation, head trauma, sore throat, voice change Cardiovascular: Denies any chest pain, palpitations, tachycardia Respiratory: Denies any shortness of breath, cough, wheeze, stridor GI/: Positive abdominal pain, nausea, denies vomiting, diarrhea, bright red blood per rectum, melanotic stools, urinary frequency, urinary retention, dysuria, hematuria MSK: Denies any joint pain, muscle pains, swelling Skin: Denies any rashes, lesions, discoloration Neuro: Denies any headache, lightheadedness, dizziness, fainting, weakness Psych: Denies SI/HI Patient History Social History Smoking Status: Former smoker Smoking Status: Former smoker alcohol intake frequency: 0-2 drinks per day Exam Narrative Exam Narrative: General: Cooperative, comfortable, well-developed, not in acute distress HEENT: Normocephalic, atraumatic, PERRLA, normal sclera, eyelids normal, Neck: Active full range of motion, atraumatic Chest: Normal to inspection, negative crepitus, no overlying erythema ecchymosis Respiratory: Normal respiratory effort, not in acute respiratory distress, clear to auscultation bilaterally negative cough, wheeze, tachypnea, rhonchi, rales Cardiology: Regular rate rhythm negative gallop, murmur, rubs GI/: Normal to inspection, soft, nonrigid, very mild tenderness to palpation to right-sided, exam deferred MSK: Full range of active range of motion of all 4 extremities, atraumatic Skin: No rashes lesions noted Neuro: Alert awake oriented x3, moves all 4 extremities spontaneously, cranial nerves intact, able to answer all questions appropriately follows commands appropriately Psych: Cooperative, negative suicidal or homicidal ideations Initial Vital Signs Initial Vital Signs: Vital Signs Blood Pressure 156/99 H 02/05/25 03:43 Course Orders Ordered: ED Orders 02/05/25 03:45 CT abdomen pelvis w con Stat 02/05/25 03:50 Complete Blood Count AUTO DIFF Stat Comprehensive Metabolic Panel Stat Lipase Stat MAG [Magnesium] Stat Discontinued Medications Sodium Chloride (Normal Saline 0.9%) 1,000 mls @ 1,000 mls/hr IV BOLUS ONE Stop: 02/05/25 04:43 Last Admin: 02/05/25 03:59 Dose: 1,000 mls/hr Documented By: TONY Ketorolac Tromethamine (Ketorolac 30 Mg/Ml Vial) 30 mg IV NOW ONE Stop: 02/05/25 03:45 Last Admin: 02/05/25 03:58 Dose: 30 mg Documented By: TONY Ondansetron HCl (Ondansetron 4 Mg/2 Ml Inj) 4 mg IV NOW ONE Stop: 02/05/25 03:45 Last Admin: 02/05/25 03:58 Dose: 4 mg Documented By: RLC Vital Signs Vital signs: Vital Signs - 8 hr 02/05/25 03:43 02/05/25 03:45 02/05/25 04:00 Temperature 98.7 F Pulse Rate 98 H 99 H Respiratory Rate 16 Blood Pressure 156/99 H 156/99 H Pulse Oximetry 100 99 Oxygen Delivery Method Room Air 02/05/25 04:32 Temperature Pulse Rate 86 Respiratory Rate 18 Blood Pressure Pulse Oximetry 99 Oxygen Delivery Method MDM - Abdominal Pain Differential Diagnosis Differential diagnosis: Likely abdominal pain, acute appendicitis, constipation, diverticulitis, pancreatitis and other (Urinary tract infection electrolyte abnormality) Lab Data 02/05/25 03:50 02/05/25 03:50 Labs: Lab Results 02/05/25 Range/Units 03:50 WBC 8.8 (4.5-11.0) X10^3/uL RBC 5.71 (4.5-5.9) X10^6/uL Hgb 16.2 (13.5-17.5) g/dL Hct 46.9 (41-53) % MCV 82.1 (80-100) fL MCH 28.3 (26-34) PG MCHC 34.5 (30-36) % RDW 15.2 H (11.6-14.8) % Plt Count 311 (150-400) X10^3/uL Neut % (Auto) 57.3 (50-75) % Lymph % (Auto) 32.8 (25-40) % Benson % (Auto) 7.5 (3-14) % Eos % (Auto) 1.0 L (2-4) % Baso % (Auto) 1.4 (0-2) % Neut # (Auto) 5100 (5910-8716) /uL Lymph # (Auto) 2900 (4351-2384) /uL Benson # (Auto) 700 (0-900) /uL Eos # (Auto) 100 (0-450) /uL Baso # (Auto) 100 (0-100) /uL Sodium 136 L (137-145) mmol/L Potassium 3.8 (3.4-5.1) mmol/L Chloride 100 (98-107) mmol/L Carbon Dioxide 22 (22-32) mmol/L BUN 15 (9-20) mg/dL Creatinine 1.00 (0.66-1.25) mg/dL Estimated GFR > 60 (>60) mL/min BUN/Creatinine Ratio 15.0 (6-22) Glucose 115 H (70-100) mg/dL Calcium 10.0 (8.4-10.2) mg/dL Magnesium 2.2 (1.6-2.3) mg/dL Total Bilirubin 1.5 H (0.2-1.3) mg/dL AST 70 H (17-59) IU/L ALT 111 H (<50) IU/L Alkaline Phosphatase 113 (38-126) U/L Total Protein 8.8 H (6.3-8.2) g/dL Albumin 5.2 H (3.5-5.0) g/dL Globulin 3.6 (1.7-4.1) g/dL Albumin/Globulin Ratio 1.4 (1.0-2.8) Lipase 164 (23-300) U/L Imaging Data CT scan - abdomen/pelvis: Radiologist's Impression: Preliminary read showing no acute intra-abdominal abnormality, normal appendix MDM Narrative Medical decision making narrative: 34-year-old without any significant past medical history presenting for right- sided abdominal distention states it started at around 11:30 p.m. yesterday night nothing making it better or worse. Does have a history of cholecystectomy. Does endorse some nausea but no vomiting. Patient had lab work imaging urinalysis performed here in the emergency department. Patient lab work without any acute findings, CT scan without any acute intra abdominal abnormalities appendix normal. Patient had urinalysis performed here which did not show signs of acute urinary tract infection 0625: Patient re-evaluated no new complaints at this time, patient well- appearing nontoxic repeat abdominal exam soft nontender non peritoneal nature. He states that his symptoms have significantly improved/resolved after administration of fluids and medication here. Patient was instructed follow up with primary care in outpatient setting he was given strict return precautions he verbalized understanding of this and agrees to being discharged home with outpatient follow up Discharge Plan Departure Patient Disposition: Home Clinical Impression: Abdominal pain Instructions: DI for Abdominal Pain-Adult Activity Restrictions/Additional Instructions: Please follow up with the primary care doctor Please read the discharge instructions sheet carefully and bring all papers to all doctor follow-up visits, as it may contain information that your doctor may want to see. Disease processes change and evolve, if your symptoms worsen or if you develop any new symptoms that are concerning to you please return for evaluation. Your evaluation today does not show any evidence of any life- threatening/serious illnesses requiring admission to the hospital or surgery. Please follow-up with your doctor for re-evaluation in approximately 1 day. Seek immediate medical attention for any worrisome symptoms. *If you do not have a primary care provider please contact the [facility] Resource line at [phone]. They will ask some questions about your medical history and help get you set up with a doctor in the community. Prescriptions: No Action dextroamphetamine-amphetamine 30 mg tablet 1 tab PO BID valacyclovir 500 mg tablet 500 mg PO BID ondansetron 4 mg tablet,disintegrating 4 mg PO Q8H PRN (Reason: nausea and vomiting) Qty: 30 0RF azithromycin 250 mg tablet See Rx Instructions .ROUTE .COMPLEX Qty: 6 0RF Rx Instructions: For 250 mg dose pack: take 500 mg today (day 1), then 250 mg for 4 days (days 2-5) prednisone 10 mg tablets,dose pack See Rx Instructions .ROUTE .COMPLEX Qty: 21 0RF Rx Instructions: orally per package directions albuterol sulfate 90 mcg/actuation aerosol powdr breath activated 2 inh inhalation Q4H PRN (Reason: shortness of breath or wheezing) Qty: 1 0RF doxycycline hyclate 100 mg tablet 100 mg PO BID Qty: 10 0RF Referrals: Joshua Fernandez PA-C [Primary Care Provider] - Stand Alone Forms: Patient Portal/API/Survey
--- NOTE | 2025-02-05 03:45 | DI.CT.S_ITS ---
PROCEDURE: CT ABDOMEN PELVIS W CON INDICATIONS: RLQ abd pain TECHNIQUE: After the administration of intravenous contrast, axial sections acquired from the lung bases to the pubic symphysis. Coronal and sagittal reformats were performed. For radiation dose reduction, the following was used: automated exposure control, adjustment of mA and/or kV according to patient size. COMPARISON: [facility], CT, CT ANGIO CHEST ABDOMEN PELVIS, 08/11/2024, 4:05. FINDINGS: Image quality: Diagnostic Lower chest: Lower lungs are unremarkable. Trace hiatal hernia. Mildly patulous distal esophagus Liver: Unremarkable Gallbladder and biliary system: Cholecystectomy clips Nondilated biliary system Pancreas: No ductal dilation Spleen: Splenomegaly. Adrenals: No discrete nodules Kidneys: No solid mass. No hydronephrosis. Vessels and lymph nodes: Main portal vein is patent. No abdominal aortic aneurysm. No pathologic lymph nodes by size criteria. Bowel and peritoneum: No small bowel obstruction. No pathologic ascites. No abscess. Nondilated appendix. Body wall: Tiny fat containing umbilical hernia. Small fat containing fat containing inguinal hernias. Pelvis: Bladder is unremarkable. Prostate is unremarkable on limited CT evaluation. Bones: No aggressive appearing osseous finding IMPRESSION: No acute abdominal pelvic abnormalities. Non dilated appendix. Splenomegaly. Other findings above. No significant changes to the preliminary report. Dictated by: Brandt Earl M.D. on 02/05/2025 at 7:37 Approved by: Brandt Earl M.D. on 02/05/2025 at 7:41
[2025-02-05] MEDS: KETOROLAC 30 MG/ML VIAL IV (03:58)
[2025-02-05] MEDS: ONDANSETRON 4 MG/2 ML INJ IV (03:58)
[2025-02-05] MEDS: SODIUM CHLORIDE 0.9% 1,000 ML 1000 ML IV (03:59)
[2025-02-05 04:07] LABS: Add Manual Diff / Slide Review NO; Basophils Absolute Auto 100 /uL (0-100); Basophils Percent Auto 1.4 % (0-2); Eosinophils Absolute Auto 100 /uL (0-450); Hematocrit 46.9 % (41-53); Hemoglobin 16.2 g/dL (13.5-17.5); Lymphocytes Absolute Auto 2900 /uL (1100-4500); Lymphocytes Percent Auto 32.8 % (25-40); Mean Corpuscular HGB Conc 34.5 % (30-36); Mean Corpuscular Hemoglobin 28.3 PG (26-34); Mean Corpuscular Volume 82.1 fL (80-100); Monocytes Absolute Auto 700 /uL (0-900); Monocytes Percent Auto 7.5 % (3-14); Neutrophils Absolute Auto 5100 /uL (1500-7000); Neutrophils Percent Auto 57.3 % (50-75); Platelet Count 311 X10^3/uL (150-400); Red Blood Cell Count 5.71 X10^6/uL (4.5-5.9); Red Cell Distribution Width 15.2 % (11.6-14.8); White Blood Cell Count 8.8 X10^3/uL (4.5-11.0)
[2025-02-05 04:12] LABS: Alanine Aminotransferase 111 IU/L (<50); Albumin 5.2 g/dL (3.5-5.0); Albumin Globulin Ratio 1.4 (1.0-2.8); Alkaline Phosphatase 113 U/L (38-126); Aspartate Aminotransferase 70 IU/L (17-59); Bilirubin Total 1.5 mg/dL (0.2-1.3); Blood Urea Nitrogen 15 mg/dL (9-20); Carbon Dioxide 22 mmol/L (22-32); Chloride 100 mmol/L (98-107); Estimated Glomerular Filt Rate > 60 mL/min (>60); Globulin 3.6 g/dL (1.7-4.1); Glucose 115 mg/dL (70-100); HEMOLYSIS < 15 (0-50); Lipase 164 U/L (23-300); Magnesium 2.2 mg/dL (1.6-2.3); Potassium 3.8 mmol/L (3.4-5.1); Sodium 136 mmol/L (137-145); Total Protein 8.8 g/dL (6.3-8.2)
== END 2025-02-05 06:40 | disposition home or self-care (01) ==
PROVIDERS: Emergency Provider Student in an Organized Health Care Education/Training Program; PCP Physician Assistant Medical
DX: R10.9 Unspecified abdominal pain (principal); R11.0 Nausea
CPT/HCPCS: 36415; 74177; 80053; 81003; 83690; 83735; 85025; 96361; 96374; 96375; 99284; J1885; J2405; Q9967

== ENCOUNTER 2025-02-23 14:48 | Emergency (ER) | payer OTHER, SELFPAY ==
[2025-02-23 15:07] VITALS: BP 148/97; PULSE 98; RESP 16; TEMP 36.4; O2SAT 100; BMI 30.7
[2025-02-23 16:03] VITALS: BP 136/84; PULSE 101; RESP 22; O2SAT 97
--- NOTE | 2025-02-23 16:04 | ED.GENADULT ---
HPI - General Adult <Agapito Nolen PA-C - Last Filed: 02/23/25 20:37> General Chief complaint: Dizziness Stated complaint: dizziness, leg px Time Seen by Provider: 02/23/25 15:15 Source: patient Mode of arrival: Ambulatory History of Present Illness HPI narrative: 34-year-old male presents to the ED with 1 day of nausea, lightheadedness, chest pain, bilateral leg numbness. Patient states he took a libido drug yesterday which he bought at the [employer], called jet black that he took for the 1st time yesterday evening. No other suspicious foods, medications. Patient denies alcohol use, drug use. No fever, shortness of breath, vomiting. Patient appears to be spitting into a vomit bag in the ED, however is not vomiting. Patient does endorse right-sided abdominal pain. Endorses history of GERD, does state that his GERD has been exacerbated recently. Related Data Home Medications Medication Instructions Recorded Confirmed dextroamphetamine-amphetamine 30 1 tab PO BID 07/10/24 07/10/24 mg tablet valacyclovir 500 mg tablet 500 mg PO BID 07/10/24 07/10/24 Previous Rx's Medication Instructions Recorded ondansetron 4 mg disintegrating 4 mg PO Q8H PRN nausea and 07/10/24 tablet vomiting #30 tabs albuterol sulfate 90 mcg/actuation 2 inh inhalation Q4H PRN shortness 10/20/24 breath activated powder inhaler of breath or wheezing #1 ea azithromycin 250 mg tablet See Rx Instructions PO .COMPLEX #6 10/20/24 tabs prednisone 10 mg tablets in a dose See Rx Instructions PO .COMPLEX 10/20/24 pack #21 ea doxycycline hyclate 100 mg tablet 100 mg PO BID #10 tabs 10/26/24 Allergies Allergy/AdvReac Type Severity Reaction Status Date / Time No Known Drug Allergies Allergy Verified 07/10/24 12:00 Review of Systems <Agapito Nolen PA-C - Last Filed: 02/23/25 20:37> Constitutional Constitutional: Reports chills, Denies fatigue, Denies fever(s), Denies frequent falls, Denies lethargy and Denies weakness Eyes Eyes: Denies change in vision, Denies eye discharge, Denies irritation and Denies loss of vision ENT Ears, Nose, Mouth, and Throat: Denies change in voice, Denies dizziness, Denies neck pain, Denies sore throat and Denies throat swelling Cardiovascular Cardiovascular: Reports chest pain, Denies irregular heart rhythm, Reports lightheadedness, Denies palpitations, Denies dyspnea, Denies dyspnea on exertion and Denies orthopnea Respiratory Respiratory: Denies cough, Denies dyspnea, Denies dyspnea on exertion and Denies wheezing Gastrointestinal Gastrointestinal: Reports abdominal pain, Denies change in bowel habits, Denies diarrhea, Reports nausea and Denies vomiting Musculoskeletal Musculoskeletal: Denies neck pain and Denies numbness Integumentary/Breasts Skin/Breast: Denies pruritus, Denies erythema, Denies rash and Denies wounds Neurologic Neurologic: Denies behavioral changes, Denies confusion, Denies dizziness, Denies frequent falls, Denies loss of vision, Denies numbness and Denies weakness Psychiatric Psychiatric: Denies anxiety, Denies behavioral changes, Denies confusion, Denies depression, Denies homicidal ideation and Denies suicidal ideation Endocrine Endocrine: Denies fatigue, Denies flushing and Denies palpitations Hematologic/Lymphatic Hematologic/Lymphatic: Denies easy bruising Allergic/Immunologic Allergic/Immunologic: Denies urticaria, Denies throat swelling and Denies wheezing Patient History <Agapito Nolen PA-C - Last Filed: 02/23/25 20:37> tobacco type: smokeless tobacco alcohol intake frequency: 0-2 drinks per day Exam <Agapito Nolen PA-C - Last Filed: 02/23/25 20:37> Narrative Exam Narrative: Const General:?cooperative, healthy appearing and comfortable [facility] Head:?normal to inspection Ears:?hearing grossly normal bilaterally Nose:?external nose normal Face and sinus:?normal facial exam and sinuses nontender Mouth:?oral mucosae normal Throat:?posterior oropharynx normal Eyes General:?appearance normal, both eyes and all related structures Neck Neck:?normal visual inspection and no lymphadenopathy noted Resp Effort & Inspection:?normal respiratory effort Auscultation:?clear to auscultation bilaterally Cardio Rate:?regular rate Rhythm:?regular rhythm GI Neuro General:?patient alert, patient awake and patient oriented x3 Initial Vital Signs Initial Vital Signs: Vital Signs Temperature 97.6 F 02/23/25 15:07 Pulse Rate 98 H 02/23/25 15:07 Respiratory Rate 16 02/23/25 15:07 Blood Pressure 148/97 H 02/23/25 15:07 Pulse Oximetry 100 02/23/25 15:07 Oxygen Delivery Method Room Air 02/23/25 15:07 <Gideon Leiva MD - Last Filed: 02/23/25 22:03> Initial Vital Signs Initial Vital Signs: Vital Signs Temperature 97.6 F 02/23/25 15:07 Pulse Rate 98 H 02/23/25 15:07 Respiratory Rate 16 02/23/25 15:07 Blood Pressure 148/97 H 02/23/25 15:07 Pulse Oximetry 100 02/23/25 15:07 Oxygen Delivery Method Room Air 02/23/25 15:07 Course <Agapito Nolen PA-C - Last Filed: 02/23/25 20:37> Orders Ordered: ED Orders 02/23/25 16:08 XR chest 1V Stat EKG-12 Lead Stat 02/23/25 16:22 Complete Blood Count AUTO DIFF Stat Comprehensive Metabolic Panel Stat Lipase Stat Magnesium Stat NT-proBNP (BNP-Adult 18+) Stat PTT Partial Thromboplastin Calvin Stat Prothrombin Time INR Stat Troponin & CK Cardiac Panel Stat 02/23/25 17:09 UA dip and micro [Urinalysis and Microscopic] Stat Urine Drug Screen, Rapid Stat Discontinued Medications Aspirin (Aspirin 81 Mg Chew Tab) 324 mg PO NOW ONE Stop: 02/23/25 16:09 Last Admin: 02/23/25 16:39 Dose: 324 mg Documented By: PARRISH Sodium Chloride (Normal Saline 0.9%) 1,000 mls @ 1,000 mls/hr IV BOLUS ONE Stop: 02/23/25 17:36 Last Infusion: 02/23/25 17:26 Dose: Infused Documented By: Admin: 02/23/25 16:43 Dose: 1,000 mls/hr Documented By: SPF Ondansetron HCl (Ondansetron 4 Mg/2 Ml Inj) 4 mg IV NOW ONE Stop: 02/23/25 16:38 Last Admin: 02/23/25 16:43 Dose: 4 mg Documented By: SPF Vital Signs Vital signs: Vital Signs - 8 hr 02/23/25 15:07 02/23/25 16:03 02/23/25 17:10 Temperature 97.6 F Pulse Rate 98 H 101 H 79 Respiratory Rate 16 22 Blood Pressure 148/97 H 136/84 133/85 Pulse Oximetry 100 97 Oxygen Delivery Method Room Air Room Air 02/23/25 17:32 02/23/25 19:36 Temperature Pulse Rate 82 75 Respiratory Rate 22 18 Blood Pressure 139/80 127/79 Pulse Oximetry 100 100 Oxygen Delivery Method Room Air <Gideon Leiva MD - Last Filed: 02/23/25 22:03> Orders Ordered: ED Orders 02/23/25 16:08 XR chest 1V Stat EKG-12 Lead Stat 02/23/25 16:22 Complete Blood Count AUTO DIFF Stat Comprehensive Metabolic Panel Stat Lipase Stat Magnesium Stat NT-proBNP (BNP-Adult 18+) Stat PTT Partial Thromboplastin Calvin Stat Prothrombin Time INR Stat Troponin & CK Cardiac Panel Stat 02/23/25 17:09 UA dip and micro [Urinalysis and Microscopic] Stat Urine Drug Screen, Rapid Stat Discontinued Medications Aspirin (Aspirin 81 Mg Chew Tab) 324 mg PO NOW ONE Stop: 02/23/25 16:09 Last Admin: 02/23/25 16:39 Dose: 324 mg Documented By: PARRISH Sodium Chloride (Normal Saline 0.9%) 1,000 mls @ 1,000 mls/hr IV BOLUS ONE Stop: 02/23/25 17:36 Last Infusion: 02/23/25 17:26 Dose: Infused Documented By: Admin: 02/23/25 16:43 Dose: 1,000 mls/hr Documented By: PARRISH Ondansetron HCl (Ondansetron 4 Mg/2 Ml Inj) 4 mg IV NOW ONE Stop: 02/23/25 16:38 Last Admin: 02/23/25 16:43 Dose: 4 mg Documented By: PARRISH Vital Signs Vital signs: Vital Signs - 8 hr 02/23/25 15:07 02/23/25 16:03 02/23/25 17:10 Temperature 97.6 F Pulse Rate 98 H 101 H 79 Respiratory Rate 16 22 Blood Pressure 148/97 H 136/84 133/85 Pulse Oximetry 100 97 Oxygen Delivery Method Room Air Room Air 02/23/25 17:32 02/23/25 19:36 Temperature Pulse Rate 82 75 Respiratory Rate 22 18 Blood Pressure 139/80 127/79 Pulse Oximetry 100 100 Oxygen Delivery Method Room Air Medical Decision Making <Agapito Nolen PA-C - Last Filed: 02/23/25 20:37> Lab Data 02/23/25 16:22 02/23/25 16:22 Labs: Lab Results 02/23/25 02/23/25 02/23/25 Range/Units 16:22 17:09 17:09 WBC 8.6 (4.5-11.0) X10^3/uL RBC 5.37 (4.5-5.9) X10^6/uL Hgb 15.1 (13.5-17.5) g/dL Hct 44.4 (41-53) % MCV 82.6 (80-100) fL MCH 28.1 (26-34) PG MCHC 34.0 (30-36) % RDW 14.8 (11.6-14.8) % Plt Count 287 (150-400) X10^3/uL Neut % (Auto) 70.3 (50-75) % Lymph % (Auto) 22.3 L (25-40) % Rains % (Auto) 6.6 (3-14) % Eos % (Auto) 0.3 L (2-4) % Baso % (Auto) 0.5 (0-2) % Neut # (Auto) 6100 (6733-2142) /uL Lymph # (Auto) 1900 (2985-9494) /uL Rains # (Auto) 600 (0-900) /uL Eos # (Auto) 0 (0-450) /uL Baso # (Auto) 0 (0-100) /uL PT 12.0 (9.4-12.5) SECONDS INR 1.1 (0.9-1.3) APTT 34 (25.1-36.5) SECONDS Sodium 138 (137-145) mmol/L Potassium 3.4 (3.4-5.1) mmol/L Chloride 104 (98-107) mmol/L Carbon Dioxide 20 L (22-32) mmol/L BUN 13 (9-20) mg/dL Creatinine 0.92 (0.66-1.25) mg/dL Estimated GFR > 60 (>60) mL/min BUN/Creatinine Ratio 14.1 (6-22) Glucose 107 H (70-100) mg/dL Calcium 9.9 (8.4-10.2) mg/dL Magnesium 2.0 (1.6-2.3) mg/dL Total Bilirubin 1.4 H (0.2-1.3) mg/dL AST 49 (17-59) IU/L ALT 82 H (<50) IU/L Alkaline Phosphatase 106 (38-126) U/L Total Creatine Kinase 73 (55-170) U/L Troponin I < 0.012 (0.01-0.034) ng/mL NT-Pro-B Natriuret Pep < 20 (<125) pg/mL Total Protein 8.5 H (6.3-8.2) g/dL Albumin 5.0 (3.5-5.0) g/dL Globulin 3.5 (1.7-4.1) g/dL Albumin/Globulin Ratio 1.4 (1.0-2.8) Lipase 148 (23-300) U/L Urine Color Yellow Urine Appearance Clear Urine pH 7.5 Normal (4.5-8.0) Ur Specific Abrams 1.010 (1.000-1.035) Urine Protein Negative (Negative) Urine Glucose (UA) Negative (Negative) g/dL Urine Ketones Negative (NEGATIVE) Urine Occult Blood Negative (Negative) Urine Nitrate Negative (Negative) Urine Bilirubin Negative (NEGATIVE) Urine Urobilinogen 0.2 (0.2) E.U./dL Ur Leukocyte Esterase Negative (NEGATIVE) Urine RBC None seen (0-5/HPF) Urine WBC None seen (0-5/HPF) Ur Squamous Epith Cells None seen (0-5/HPF) Urine Bacteria None seen (None) Ur Culture Indicated? Cult not indicated Vol Urine Centrifuged 10ml (spun) U Opiates 300ng/mL cut Negative (Negative) Ur Oxycodone Screen Negative (Negative) Urine Methadone Screen Negative (Negative) Ur Barbiturates Screen Negative (Negative) U Tricyclic Antidepress Negative (Negative) Ur Phencyclidine Scrn Negative (Negative) Ur Amphetamines Screen Negative (Negative) U Methamphetamines Scrn Positive H (Negative) Ur MDMA Scrn (Ecstasy) Negative (Negative) U Benzodiazepines Scrn Negative (Negative) Urine Cocaine Screen Negative (Negative) U Marijuana (THC) Screen Negative (Negative) Urine Specific Abrams Normal (Normal) Ur Creatinine Normal (Normal) [facility] Narrative Medical decision making narrative: 34-year-old male presents to the ED with 1 day of nausea, lightheadedness, chest pain, bilateral leg numbness. Will workup with chest pain, obtain UA, UDS. Patient given IV fluids on request. Zofran for nausea. Will reassess. Cardiac workup is unremarkable. Urine drug screen positive for methamphetamines. Patient improved with Zofran and IV fluids. Discussed findings with patient. Patient suspects that the supplement that he took yesterday was the source of the meth. Counseled patient to avoid taking non FDA approved supplements since they might have dangerous ingredients. Patient verbalized understanding. ED return precautions were discussed with patient. Patient verbalized understanding. Medical records reviewed: Yes <Gideon Leiva MD - Last Filed: 02/23/25 22:03> Lab Data Labs: Lab Results 02/23/25 02/23/25 02/23/25 Range/Units 16:22 17:09 17:09 WBC 8.6 (4.5-11.0) X10^3/uL RBC 5.37 (4.5-5.9) X10^6/uL Hgb 15.1 (13.5-17.5) g/dL Hct 44.4 (41-53) % MCV 82.6 (80-100) fL MCH 28.1 (26-34) PG MCHC 34.0 (30-36) % RDW 14.8 (11.6-14.8) % Plt Count 287 (150-400) X10^3/uL Neut % (Auto) 70.3 (50-75) % Lymph % (Auto) 22.3 L (25-40) % Rains % (Auto) 6.6 (3-14) % Eos % (Auto) 0.3 L (2-4) % Baso % (Auto) 0.5 (0-2) % Neut # (Auto) 6100 (0271-4216) /uL Lymph # (Auto) 1900 (2503-9363) /uL Rains # (Auto) 600 (0-900) /uL Eos # (Auto) 0 (0-450) /uL Baso # (Auto) 0 (0-100) /uL PT 12.0 (9.4-12.5) SECONDS INR 1.1 (0.9-1.3) APTT 34 (25.1-36.5) SECONDS Sodium 138 (137-145) mmol/L Potassium 3.4 (3.4-5.1) mmol/L Chloride 104 (98-107) mmol/L Carbon Dioxide 20 L (22-32) mmol/L BUN 13 (9-20) mg/dL Creatinine 0.92 (0.66-1.25) mg/dL Estimated GFR > 60 (>60) mL/min BUN/Creatinine Ratio 14.1 (6-22) Glucose 107 H (70-100) mg/dL Calcium 9.9 (8.4-10.2) mg/dL Magnesium 2.0 (1.6-2.3) mg/dL Total Bilirubin 1.4 H (0.2-1.3) mg/dL AST 49 (17-59) IU/L ALT 82 H (<50) IU/L Alkaline Phosphatase 106 (38-126) U/L Total Creatine Kinase 73 (55-170) U/L Troponin I < 0.012 (0.01-0.034) ng/mL NT-Pro-B Natriuret Pep < 20 (<125) pg/mL Total Protein 8.5 H (6.3-8.2) g/dL Albumin 5.0 (3.5-5.0) g/dL Globulin 3.5 (1.7-4.1) g/dL Albumin/Globulin Ratio 1.4 (1.0-2.8) Lipase 148 (23-300) U/L Urine Color Yellow Urine Appearance Clear Urine pH 7.5 Normal (4.5-8.0) Ur Specific Abrams 1.010 (1.000-1.035) Urine Protein Negative (Negative) Urine Glucose (UA) Negative (Negative) g/dL Urine Ketones Negative (NEGATIVE) Urine Occult Blood Negative (Negative) Urine Nitrate Negative (Negative) Urine Bilirubin Negative (NEGATIVE) Urine Urobilinogen 0.2 (0.2) E.U./dL Ur Leukocyte Esterase Negative (NEGATIVE) Urine RBC None seen (0-5/HPF) Urine WBC None seen (0-5/HPF) Ur Squamous Epith Cells None seen (0-5/HPF) Urine Bacteria None seen (None) Ur Culture Indicated? Cult not indicated Vol Urine Centrifuged 10ml (spun) U Opiates 300ng/mL cut Negative (Negative) Ur Oxycodone Screen Negative (Negative) Urine Methadone Screen Negative (Negative) Ur Barbiturates Screen Negative (Negative) U Tricyclic Antidepress Negative (Negative) Ur Phencyclidine Scrn Negative (Negative) Ur Amphetamines Screen Negative (Negative) U Methamphetamines Scrn Positive H (Negative) Ur MDMA Scrn (Ecstasy) Negative (Negative) U Benzodiazepines Scrn Negative (Negative) Urine Cocaine Screen Negative (Negative) U Marijuana (THC) Screen Negative (Negative) Urine Specific Abrams Normal (Normal) Ur Creatinine Normal (Normal) Discharge Plan Departure Patient Disposition: Home Clinical Impression: Chest pain Qualifiers: Chest pain type: unspecified Qualified Code(s): R07.9 - Chest pain, unspecified Instructions: DI for Atypical Chest Pain Activity Restrictions/Additional Instructions: You were evaluated in the emergency room for chest pain, nausea and weakness. Your urine did test positive today for methamphetamines. Your workup today was otherwise normal. It is unclear what exactly caused your symptoms, however it could have been the supplement that you took last night for the 1st time. You were advised to stay away from the supplements that are not FDA regulated, since the ingredients list could be dangerous. We are glad that you are feeling much better now. Please follow-up with your PCP as soon as possible. Return to the ED if you have worsening symptoms. Prescriptions: No Action dextroamphetamine-amphetamine 30 mg tablet 1 tab PO BID valacyclovir 500 mg tablet 500 mg PO BID ondansetron 4 mg tablet,disintegrating 4 mg PO Q8H PRN (Reason: nausea and vomiting) Qty: 30 0RF azithromycin 250 mg tablet See Rx Instructions .ROUTE .COMPLEX Qty: 6 0RF Rx Instructions: For 250 mg dose pack: take 500 mg today (day 1), then 250 mg for 4 days (days 2-5) prednisone 10 mg tablets,dose pack See Rx Instructions .ROUTE .COMPLEX Qty: 21 0RF Rx Instructions: orally per package directions albuterol sulfate 90 mcg/actuation aerosol powdr breath activated 2 inh inhalation Q4H PRN (Reason: shortness of breath or wheezing) Qty: 1 0RF doxycycline hyclate 100 mg tablet 100 mg PO BID Qty: 10 0RF Referrals: Joshua Fernandez PA-C [Primary Care Provider] - Stand Alone Forms: Patient Portal/API/Survey ED Sign-out <Gideon Leiva MD - Last Filed: 02/23/25 22:03> Cosign ED Attending Myleneature Attestation: I was immediately available in the department for consultation. This documentation has been reviewed and I agree with assessment and plan. Supervised by Gideon Leiva MD
--- NOTE | 2025-02-23 16:08 | DI.RAD.S_ITS ---
PROCEDURE: XR CHEST 1V INDICATIONS: chest pain TECHNIQUE: One view of the chest was acquired. COMPARISON: [facility], CR, XR CHEST 2V, 10/26/2024, 20:50. [facility], CR, XR CHEST 2V, 10/20/2024, 9:42. FINDINGS: Surgical changes and devices: None. Lungs and pleura: Low lung volumes without focal consolidation. No pleural effusions or pneumothorax. Mediastinum: Mediastinal contours appear normal. Heart size is normal. Bones and chest wall: No suspicious bony lesions. Overlying soft tissues appear unremarkable. IMPRESSION: No acute cardiothoracic process. Dictated by: Martín Cody M.D. on 02/23/2025 at 16:55 Approved by: Martín Cody M.D. on 02/23/2025 at 16:55
--- NOTE | 2025-02-23 16:17 | EKG_ITS ---
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
--- NOTE | 2025-02-23 16:17 | EKG_ITS ---
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
[2025-02-23 16:37] LABS: Add Manual Diff / Slide Review NO; Basophils Absolute Auto 0 /uL (0-100); Basophils Percent Auto 0.5 % (0-2); Eosinophils Absolute Auto 0 /uL (0-450); Eosinophils Percent Auto 0.3 % (2-4); Hematocrit 44.4 % (41-53); Hemoglobin 15.1 g/dL (13.5-17.5); Lymphocytes Absolute Auto 1900 /uL (1100-4500); Lymphocytes Percent Auto 22.3 % (25-40); Mean Corpuscular Hemoglobin 28.1 PG (26-34); Mean Corpuscular Volume 82.6 fL (80-100); Monocytes Absolute Auto 600 /uL (0-900); Monocytes Percent Auto 6.6 % (3-14); Neutrophils Absolute Auto 6100 /uL (1500-7000); Neutrophils Percent Auto 70.3 % (50-75); Platelet Count 287 X10^3/uL (150-400); Red Blood Cell Count 5.37 X10^6/uL (4.5-5.9); Red Cell Distribution Width 14.8 % (11.6-14.8); White Blood Cell Count 8.6 X10^3/uL (4.5-11.0)
[2025-02-23] MEDS: ASPIRIN 81 MG CHEW TAB 324 MG PO (16:39)
[2025-02-23] MEDS: ONDANSETRON 4 MG/2 ML INJ IV (16:43)
[2025-02-23] MEDS: SODIUM CHLORIDE 0.9% 1,000 ML 1000 ML IV (16:43)
[2025-02-23 16:45] LABS: INR 1.1 (0.9-1.3)
[2025-02-23 16:47] LABS: PTT Partial Thromboplastin Tim 34 SECONDS (25.1-36.5)
[2025-02-23 16:49] LABS: Alanine Aminotransferase 82 IU/L (<50); Albumin Globulin Ratio 1.4 (1.0-2.8); Alkaline Phosphatase 106 U/L (38-126); Aspartate Aminotransferase 49 IU/L (17-59); BUN Creatinine Ratio 14.1 (6-22); Bilirubin Total 1.4 mg/dL (0.2-1.3); Blood Urea Nitrogen 13 mg/dL (9-20); Calcium 9.9 mg/dL (8.4-10.2); Carbon Dioxide 20 mmol/L (22-32); Chloride 104 mmol/L (98-107); Creatine Kinase 73 U/L (55-170); Estimated Glomerular Filt Rate > 60 mL/min (>60); Globulin 3.5 g/dL (1.7-4.1); Glucose 107 mg/dL (70-100); HEMOLYSIS < 15 (0-50); Lipase 148 U/L (23-300); Potassium 3.4 mmol/L (3.4-5.1); Sodium 138 mmol/L (137-145); Total Protein 8.5 g/dL (6.3-8.2)
[2025-02-23 17:00] LABS: NT-proBNP (BNP-Adult 18+) < 20 pg/mL (<125); Troponin I < 0.012 ng/mL (0.01-0.034)
[2025-02-23 17:10] VITALS: BP 133/85; PULSE 79
[2025-02-23 17:31] LABS: Ur Creatinine Normal (Normal); Ur Specific Gravity Normal (Normal); Urine pH Normal (Normal)
[2025-02-23 17:32] VITALS: BP 139/80; PULSE 82; RESP 22; O2SAT 100
[2025-02-23 17:32] LABS: Urine Amphetamines Negative (Negative); Urine Barbiturates Negative (Negative); Urine Benzodiazepines Negative (Negative); Urine Cocaine Negative (Negative); Urine MDMA Negative (Negative); Urine Methadone Negative (Negative); Urine Methamphetamines Positive (Negative); Urine Opiates Negative (Negative); Urine Oxycodone Negative (Negative); Urine Phencyclidine Negative (Negative); Urine THC Negative (Negative); Urine Tricyclic Antidepressant Negative (Negative)
[2025-02-23 18:50] LABS: Appearance Urine UA CLEAR; Bilirubin Urine UA NEGATIVE (NEGATIVE); Color Urine UA YELLOW; Glucose Urine UA NEGATIVE (Negative); Ketones Urine UA NEGATIVE (NEGATIVE); Leukocyte Esterase Urine UA NEGATIVE (NEGATIVE); Nitrite Urine UA NEGATIVE (Negative); Occult Blood Urine UA NEGATIVE (Negative); Protein Urine UA NEGATIVE (Negative); Urobilinogen Urine UA 0.2 E.U./dL (0.2); pH Urine UA 7.5 (4.5-8.0)
[2025-02-23 19:26] LABS: Bacteria Urine None Seen; Culture Indicated Urine Cult Not Indicated; RBC Urine None Seen (0-5/HPF); Squamous Epithelial Cell Urine None Seen (0-5/HPF); Urine Volume 10mL (spun); WBC Urine None Seen (0-5/HPF)
[2025-02-23 19:36] VITALS: BP 127/79; PULSE 75; RESP 18; O2SAT 100
== END 2025-02-23 19:54 | disposition home or self-care (01) ==
PROVIDERS: Emergency Provider Student in an Organized Health Care Education/Training Program; PCP Physician Assistant Medical
DX: R07.9 Chest pain, unspecified (principal); R11.0 Nausea; R42 Dizziness and giddiness; R20.0 Anesthesia of skin
CPT/HCPCS: 36415; 71045; 80053; 80305; 81001; 82550; 83690; 83735; 83880; 84484; 85025; 85610; 85730; 93005; 96361; 96374; 99284; J2405

== ENCOUNTER → 2025-03-20 13:04 | Outpatient (CLI) | payer OTHER, SELFPAY ==
[2025-03-20 14:43] LABS: Influenza A - CEPHEID Flu A NEGATIVE (NEGATIVE); Influenza B - CEPHEID Flu B NEGATIVE (NEGATIVE); Respiratory Syncytial Virus Negative (Negative)
[2025-03-20 14:46] LABS: COVID-19 CEPHEID 4-PLEX PCR Negative (Negative)
== END ==
LOC: LAB 13:04
PROVIDERS: PCP Physician Assistant Medical; Visit Provider Chiropractor
DX: R05.1 Acute cough (principal)
CPT/HCPCS: 87635; 87400; 87420; 0241U

== ENCOUNTER 2025-04-14 14:54 | Emergency (ER) | payer OTHER, SELFPAY ==
[2025-04-14] VITALS (7 sets, daily range): BP systolic 104–118; BP diastolic 65–80; PULSE 77–92; RESP 15–98; TEMP 36.4; O2SAT 97–100; BMI 32.1
--- NOTE | 2025-04-14 15:07 | ED.GENADULT ---
HPI - General Adult General Chief complaint: Abdominal Pain Stated complaint: abd pain, appendix Time Seen by Provider: 04/14/25 14:55 History of Present Illness HPI narrative: 34-year-old gentleman post gallbladder removal and with a 5-day-old at home presents with right-sided abdominal pain. It started approximately 1-2 hours prior to arrival describes it as a 9/10. States that he has very loose stools regularly that have not change since his gallbladder surgery. No fevers but he feels generally unwell. The pain is in the right flank to right lower quadrant without any rebound or guarding. He has no other complaints today Related Data Home Medications Medication Instructions Recorded Confirmed valacyclovir 500 mg tablet 500 mg PO BID 07/10/24 03/20/25 dextroamphetamine-amphetamine 15 tab PO 03/20/25 03/20/25 mg tablet omeprazole 40 mg-sodium 1 cap PO QAM 03/20/25 03/20/25 bicarbonate 1.1 gram capsule Allergies Allergy/AdvReac Type Severity Reaction Status Date / Time No Known Drug Allergies Allergy Verified 03/20/25 13:03 Review of Systems Review of Systems Narrative: Pertinent positive and negative findings as per HPI Patient History Surgical History (Updated 04/14/25 @ 15:08 by Miguelina Cardenas MD) Hx laparoscopic cholecystectomy Social History Smoking Status: Former smoker Smoking Status: Former smoker tobacco type: smokeless tobacco alcohol intake frequency: 0-2 drinks per day Exam Initial Vital Signs Initial Vital Signs: Vital Signs Temperature 97.6 F 04/14/25 14:57 Pulse Rate 82 04/14/25 14:57 Respiratory Rate 98 H 04/14/25 14:57 Blood Pressure 118/80 04/14/25 14:57 Pulse Oximetry 98 04/14/25 14:57 Oxygen Delivery Method Room Air 04/14/25 14:57 General: Healthy appearing, in no acute distress. Able to give a complete and coherent history. Well-nourished well-developed HEENT: Moist mucous membranes, normal sclera with reactive pupils, Respiratory: Lungs are clear to auscultation, no wheezing no rales no rhonchi. Full and symmetrical air movement Cardiac: Regular rate and rhythm no murmurs no bruits Abdomen: Soft, tender in the right middle to lower quadrant with some mild right flank pain. there is no rebound or guarding Skin: Warm and dry, no rashes In area of pain Neurologic: Grossly neurologically intact with no obvious asymmetries or abnormalities Extremities: No trauma, well perfused Psych: Cooperative, appropriate insight and affect Course Orders Ordered: ED Orders 04/14/25 15:10 CT abdomen pelvis w con Stat 04/14/25 15:17 Complete Blood Count AUTO DIFF Stat Comprehensive Metabolic Panel Stat Lipase Stat 04/14/25 15:21 Urine Microscopic Stat Discontinued Medications Sodium Chloride (Normal Saline 0.9%) 1,000 mls @ 1,000 mls/hr IV BOLUS ONE Stop: 04/14/25 16:08 Last Infusion: 04/14/25 16:22 Dose: Infused Documented By: Infusion: 04/14/25 16:21 Dose: 0 mls/hr Documented By: Admin: 04/14/25 15:28 Dose: 1,000 mls/hr Documented By: TUCKER Ketorolac Tromethamine (Ketorolac 30 Mg/Ml Vial) 15 mg IV NOW ONE Stop: 04/14/25 15:10 Last Admin: 04/14/25 15:27 Dose: 15 mg Documented By: TCUKER Vital Signs Vital signs: Vital Signs - 8 hr 04/14/25 14:57 04/14/25 16:23 Temperature 97.6 F Pulse Rate 82 83 Respiratory Rate 98 H 18 Blood Pressure 118/80 115/66 Pulse Oximetry 98 99 Oxygen Delivery Method Room Air Room Air Medical Decision Making Lab Data 04/14/25 15:17 04/14/25 15:17 Labs: Lab Results 04/14/25 04/14/25 Range/Units 15:17 15:21 WBC 8.9 (4.5-11.0) X10^3/uL RBC 5.27 (4.5-5.9) X10^6/uL Hgb 15.0 (13.5-17.5) g/dL Hct 44.0 (41-53) % MCV 83.4 (80-100) fL MCH 28.5 (26-34) PG MCHC 34.2 (30-36) % RDW 14.2 (11.6-14.8) % Plt Count 308 (150-400) X10^3/uL Neut % (Auto) 64.6 (50-75) % Lymph % (Auto) 27.1 (25-40) % [place] % (Auto) 6.6 (3-14) % Eos % (Auto) 0.7 L (2-4) % Baso % (Auto) 1.0 (0-2) % Neut # (Auto) 5800 (0144-7257) /uL Lymph # (Auto) 2400 (5030-3134) /uL [place] # (Auto) 600 (0-900) /uL Eos # (Auto) 100 (0-450) /uL Baso # (Auto) 100 (0-100) /uL Sodium 137 (137-145) mmol/L Potassium 3.6 (3.4-5.1) mmol/L Chloride 104 (98-107) mmol/L Carbon Dioxide 19 L (22-32) mmol/L BUN 20 (9-20) mg/dL Creatinine 1.01 (0.66-1.25) mg/dL Estimated GFR > 60 (>60) mL/min BUN/Creatinine Ratio 19.8 (6-22) Glucose 97 (70-99) mg/dL Calcium 9.6 (8.4-10.2) mg/dL Total Bilirubin 1.2 (0.2-1.3) mg/dL AST 58 (17-59) IU/L ALT 125 H (<50) IU/L Alkaline Phosphatase 102 (38-126) U/L Total Protein 8.3 H (6.3-8.2) g/dL Albumin 4.8 (3.5-5.0) g/dL Globulin 3.5 (1.7-4.1) g/dL Albumin/Globulin Ratio 1.4 (1.0-2.8) Lipase 160 (23-300) U/L Urine RBC None seen (0-5/HPF) Urine WBC 0-1/hpf (0-5/HPF) Ur Squamous Epith Cells None seen (0-5/HPF) Urine Bacteria None seen (None) Urine Mucus 2+ H (Negative) Ur Culture Indicated? Cult not indicated Vol Urine Centrifuged 10ml (spun) Urine Dip Bedside Urine Glucose Negative Bedside Urine Bilirubin - Negative Bedside Urine Ketone +++ 80 Urine Specific Centuria 1.030 Bedside Urine Occult Blood +/- Bedside Urine pH 6.0 Bedside Urine Protein +/- 15 Bedside Urine Urobilinogen - Negative Bedside Urine Nitrite - Negative Bedside Urine Leukocytes - Negative Esterase Point of care testing: Urine Dip Bedside Urine Glucose Negative Bedside Urine Bilirubin - Negative Bedside Urine Ketone +++ 80 Urine Specific Centuria 1.030 Bedside Urine Occult Blood +/- Bedside Urine pH 6.0 Bedside Urine Protein +/- 15 Bedside Urine Urobilinogen - Negative Bedside Urine Nitrite - Negative Bedside Urine Leukocytes - Negative Esterase Imaging Data CT scan - abdomen/pelvis: Radiologist's Impression: PROCEDURE: CT ABDOMEN PELVIS W CON INDICATIONS: RLQ abd pain TECHNIQUE: After the administration of intravenous contrast, axial sections acquired from the lung bases to the pubic symphysis. Coronal and sagittal reformats were performed. For radiation dose reduction, the following was used: automated exposure control, adjustment of mA and/or kV according to patient size. COMPARISON: [facility], CT, CT ABDOMEN PELVIS W CON, 02/05/2025, 4:27. FINDINGS: Image quality: Diagnostic. Lower Chest: Lung bases are clear. Very small hiatal hernia. ABDOMEN: Liver: No solid mass. Gallbladder: Surgically absent Biliary ducts: No biliary dilation. Pancreas: No ductal dilation. Spleen: Mild splenomegaly. Adrenal Glands: No adrenal nodules. Kidneys and Ureters: No hydronephrosis. No solid mass. No complex renal cystic lesion which requires follow up. Stomach and Bowel: Normal colonic caliber, without significant wall thickening. Normal appendix. No evidence for small bowel obstruction or associated inflammatory changes. Peritoneum: No abnormal intraperitoneal fluid. No free air. Ventral Wall: There is a fat-containing umbilical hernia without acute inflammation. Abdominal Nodes: No retroperitoneal or mesenteric adenopathy by size criteria. Vessels: Aorta and inferior vena cava are normal in size. PELVIS: Pelvic Organs: Unremarkable. Bladder: No bladder wall thickening, accounting for underdistention. Pelvic Nodes: No enlarged lymph nodes. Miscellaneous: Fat containing bilateral inguinal hernias without acute inflammation. Bones: No aggressive osseous abnormality. Visualized osseous structures appear intact without acute fracture or focal destructive lesion. No acute compression fractures of the imaged spine. IMPRESSION: 1. CT abdomen and pelvis without acute abnormalities. 2. Splenomegaly redemonstrated. 3. Status post post cystectomy. 4. Normal appendix. Dictated by: Neeraj Chou M.D. on 04/14/2025 at 17:08 MDM Narrative Medical decision making narrative: 34-year-old gentleman who comes in with an hour and a half of severe right-sided abdominal pain. States he never has constipation after having his gallbladder removed. He has not been having fevers or chills. He notes that he has been working in sun today and was somewhat dehydrated with a bit of excess alcohol over the weekend. blood work is very reassuring with no evidence of infection or acute renal failure. No electrolyte abnormalities. CT scan of his abdomen does not show renal abnormalities, kidney stones, normal appendix is seen and there was no evidence of mass or significant constipation. Patient is feeling markedly improved after a L of fluid and IV Toradol. Findings reviewed with him including the fact that he does not need any additional workup today no hospitalization and no further imaging. Questions are answered and he is safe for discharge Discharge Plan Departure Patient Disposition: Home Clinical Impression: Abdominal pain Qualifiers: Abdominal location: right lower quadrant Qualified Code(s): R10.31 - Right lower quadrant pain Instructions: DI for Abdominal Pain-Adult Activity Restrictions/Additional Instructions: thank you for coming in today fortunately, your lab work was very reassuring. No evidence of infection, kidney problems or liver problems your CT scan does not show appendicitis, kidney stones, obstructions or masses or reasons for any type of further evaluation today your pain seemed to improve with fluids in the IV Toradol that you were given. I would recommend that you keep yourself well hydrated, using 400 mg of ibuprofen (2 lcgm-[id number] pills) and 1 Tylenol every 6 hours can be very helpful in controlling pain. Prescriptions: No Action valacyclovir 500 mg tablet 500 mg PO BID omeprazole-sodium bicarbonate 40-1.1 mg-gram capsule 1 cap PO QAM dextroamphetamine-amphetamine 15 mg tablet PO Referrals: Joshua Fernandez PA-C [Primary Care Provider] - Stand Alone Forms: Patient Portal/API/Survey
--- NOTE | 2025-04-14 15:10 | DI.CT.S_ITS ---
PROCEDURE: CT ABDOMEN PELVIS W CON INDICATIONS: RLQ abd pain TECHNIQUE: After the administration of intravenous contrast, axial sections acquired from the lung bases to the pubic symphysis. Coronal and sagittal reformats were performed. For radiation dose reduction, the following was used: automated exposure control, adjustment of mA and/or kV according to patient size. COMPARISON: [facility], CT, CT ABDOMEN PELVIS W CON, 02/05/2025, 4:27. FINDINGS: Image quality: Diagnostic. Lower Chest: Lung bases are clear. Very small hiatal hernia. ABDOMEN: Liver: No solid mass. Gallbladder: Surgically absent Biliary ducts: No biliary dilation. Pancreas: No ductal dilation. Spleen: Mild splenomegaly. Adrenal Glands: No adrenal nodules. Kidneys and Ureters: No hydronephrosis. No solid mass. No complex renal cystic lesion which requires follow up. Stomach and Bowel: Normal colonic caliber, without significant wall thickening. Normal appendix. No evidence for small bowel obstruction or associated inflammatory changes. Peritoneum: No abnormal intraperitoneal fluid. No free air. Ventral Wall: There is a fat-containing umbilical hernia without acute inflammation. Abdominal Nodes: No retroperitoneal or mesenteric adenopathy by size criteria. Vessels: Aorta and inferior vena cava are normal in size. PELVIS: Pelvic Organs: Unremarkable. Bladder: No bladder wall thickening, accounting for underdistention. Pelvic Nodes: No enlarged lymph nodes. Miscellaneous: Fat containing bilateral inguinal hernias without acute inflammation. Bones: No aggressive osseous abnormality. Visualized osseous structures appear intact without acute fracture or focal destructive lesion. No acute compression fractures of the imaged spine. IMPRESSION: 1. CT abdomen and pelvis without acute abnormalities. 2. Splenomegaly redemonstrated. 3. Status post post cystectomy. 4. Normal appendix. Dictated by: Neeraj Chou M.D. on 04/14/2025 at 17:08 Approved by: Neeraj Chou M.D. on 04/14/2025 at 17:13
[2025-04-14] MEDS: KETOROLAC 30 MG/ML VIAL 15 MG IV (15:27)
[2025-04-14 15:28] LABS: Add Manual Diff / Slide Review NO; Basophils Absolute Auto 100 /uL (0-100); Eosinophils Absolute Auto 100 /uL (0-450); Eosinophils Percent Auto 0.7 % (2-4); Lymphocytes Absolute Auto 2400 /uL (1100-4500); Lymphocytes Percent Auto 27.1 % (25-40); Mean Corpuscular HGB Conc 34.2 % (30-36); Mean Corpuscular Hemoglobin 28.5 PG (26-34); Mean Corpuscular Volume 83.4 fL (80-100); Monocytes Absolute Auto 600 /uL (0-900); Monocytes Percent Auto 6.6 % (3-14); Neutrophils Absolute Auto 5800 /uL (1500-7000); Neutrophils Percent Auto 64.6 % (50-75); Platelet Count 308 X10^3/uL (150-400); Red Blood Cell Count 5.27 X10^6/uL (4.5-5.9); Red Cell Distribution Width 14.2 % (11.6-14.8); White Blood Cell Count 8.9 X10^3/uL (4.5-11.0)
[2025-04-14] MEDS: SODIUM CHLORIDE 0.9% 1,000 ML 1000 ML IV (15:28)
[2025-04-14 15:40] LABS: Alanine Aminotransferase 125 IU/L (<50); Albumin 4.8 g/dL (3.5-5.0); Albumin Globulin Ratio 1.4 (1.0-2.8); Alkaline Phosphatase 102 U/L (38-126); Aspartate Aminotransferase 58 IU/L (17-59); BUN Creatinine Ratio 19.8 (6-22); Bilirubin Total 1.2 mg/dL (0.2-1.3); Blood Urea Nitrogen 20 mg/dL (9-20); Calcium 9.6 mg/dL (8.4-10.2); Carbon Dioxide 19 mmol/L (22-32); Chloride 104 mmol/L (98-107); Estimated Glomerular Filt Rate > 60 mL/min (>60); Globulin 3.5 g/dL (1.7-4.1); Glucose 97 mg/dL (70-99); HEMOLYSIS < 15 (0-50); Lipase 160 U/L (23-300); Potassium 3.6 mmol/L (3.4-5.1); Sodium 137 mmol/L (137-145); Total Protein 8.3 g/dL (6.3-8.2)
[2025-04-14 15:52] LABS: Urine Volume 10mL (spun)
[2025-04-14 15:53] LABS: Bacteria Urine None Seen; Culture Indicated Urine Cult Not Indicated; Mucus Urine 2+ (Negative); RBC Urine None Seen (0-5/HPF); Squamous Epithelial Cell Urine None Seen (0-5/HPF); WBC Urine 0-1/HPF (0-5/HPF)
== END 2025-04-14 17:52 | disposition home or self-care (01) ==
PROVIDERS: Emergency Provider Emergency Medicine; PCP Physician Assistant Medical
DX: R10.31 Right lower quadrant pain (principal)
CPT/HCPCS: 36415; 74177; 80053; 81003; 81015; 83690; 85025; 96361; 96374; 99284; J1885; Q9967

== ENCOUNTER 2025-08-01 08:38 | Emergency (ER) | payer MEDICAID, SELFPAY ==
[2025-08-01] VITALS (7 sets, daily range): BP systolic 114–151; BP diastolic 70–88; PULSE 82–97; RESP 14–21; TEMP 36.1; O2SAT 97–100; BMI 29.9
--- NOTE | 2025-08-01 08:43 | ED.GENADULT ---
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 Patient denies homicidal, suicidal ideation, seeing things, hearing voices, chest pain, shortness of breath, cough, back pain, diarrhea, constipation, blood in the urine or stool. Other than what is stated 14 point review system is negative. Related Data Home Medications ?Medication ?Instructions ?Recorded ?Confirmed valacyclovir 500 mg tablet 500 mg PO BID 07/10/24 05/13/25 dextroamphetamine-amphetamine 15 tab PO 03/20/25 05/13/25 mg tablet omeprazole 40 mg-sodium 1 cap PO QAM 03/20/25 05/13/25 bicarbonate 1.1 gram capsule Previous Rx's ?Medication ?Instructions ?Recorded ofloxacin 0.3 % eye drops 1 drp ophthalmic (eye) Q4H #5 mL 05/13/25 Allergies Allergy/AdvReac Type Severity Reaction Status Date / Time No Known Drug Allergies Allergy Verified 08/01/25 08:44 Review of Systems Review of Systems ROS Unobtainable: All systems reviewed & are unremarkable except as noted in HPI and below Patient History Surgical History (Updated 04/14/25 @ 15:08 by Miguelina Cardenas MD) Hx laparoscopic cholecystectomy tobacco type: smokeless tobacco alcohol intake frequency: 0-2 drinks per day Exam Narrative Exam Narrative: GENERAL: 35 year old patient appears stated age. Well-developed patient, in mild distress. HEAD: Atraumatic. Normocephalic. EYES: Pupils equal round and reactive. Extraocular motions intact. No scleral icterus. No injection or drainage. ENT: Nose without bleeding, purulent drainage. Throat without erythema, tonsillar hypertrophy or exudate. Airway patent. NECK: Trachea midline. Non tender CARDIOVASCULAR: Regular rate and rhythm without murmurs, gallops, or rubs. RESPIRATORY: Clear to auscultation. Breath sounds equal bilaterally. No wheezes, rales, or rhonchi. GASTROINTESTINAL: Abdomen soft, non-tender, nondistended. EXTREMITIES: No edema or joint tenderness. BACK: Nontender without deformity or crepitance. No flank tenderness. NEURO: AOx3. SKIN: No rash or erythema of visible areas Medical Decision Making Imaging Data CT scan - abdomen/pelvis: Radiologist's Impression: [address] [address] [address] Scan Report Signed Patient: August Blankenship MR#: [id number] : 1990 Acct:[id number] Age/Sex: 35 / M Date of Service: 08/01/25 Loc: ED Accession Number: [id number] Procedure: CT abdomen pelvis w con Ordering Provider: Mario Zarate D.O. PROCEDURE: CT ABDOMEN PELVIS W CON INDICATIONS: RUQ pain/ hx of cholecystectomy TECHNIQUE: After the administration of intravenous contrast, axial sections acquired from the lung bases to the pubic symphysis. Coronal and sagittal reformats were performed. For radiation dose reduction, the following was used: automated exposure control, adjustment of mA and/or kV according to patient size. COMPARISON: None. FINDINGS: Image quality: Diagnostic. Lower Chest: No significant findings. ABDOMEN: Liver: No solid mass. Gallbladder: Surgically absent. There is no fluid collection or inflammation at the surgical bed. Biliary ducts: No biliary dilation. Pancreas: No ductal dilation. Spleen: Size is within normal limits. Adrenal Glands: No adrenal nodules. Kidneys and Ureters: No hydronephrosis. No solid mass. No complex renal cystic lesion which requires follow up. Stomach and Bowel: Normal colonic caliber, without significant wall thickening. Peritoneum: No abnormal intraperitoneal fluid. No free air. Ventral Wall: No significant ventral hernia. Abdominal Nodes: No retroperitoneal or mesenteric adenopathy by size criteria. Vessels: Aorta and inferior vena cava are normal in size. PELVIS: Pelvic Organs: Unremarkable. Bladder: No bladder wall thickening, accounting for underdistention. Pelvic Nodes: No enlarged lymph nodes. Miscellaneous: No inguinal hernias are seen. Bones: No aggressive osseous abnormality. No rib fracture. IMPRESSION: No CT evidence for the etiology of the patient's symptoms. Specifically, no evidence of post cholecystectomy complication, rib fracture, or other acute abdominal process. ECG Data Interpretation: NSR HR 97 CT 166 QRS [address]-t wave change Unchanged from 02/23/25 MDM Narrative Medical decision making narrative: All lab work, vital signs, nurse triage note, medication list, previous ER visits, and all imaging studies reviewed. Chest x-ray showed no acute process. CT abdomen showed no evidence for the patient's symptoms status post cholecystectomy no complications, rib fracture any other acute process. CBC CMP lipase LFTs troponin EKG were all unremarkable. Differential diagnosis choledocholithiasis, pancreatitis, small-bowel obstruction, constipation meth use. Patient given Narcan rx prior to d/c home Discharge Plan Departure Patient Disposition: Home Clinical Impression: Abdominal pain, acute, right upper quadrant, Methamphetamine use Instructions: DI for Abdominal Pain-Adult Activity Restrictions/Additional Instructions: Return with new or worsening symptoms. Clear liquid diet advance as tolerated. Keep hydrated. Follow up PCP in 1-2 weeks if no improvement in symptoms. Prescriptions: No Action ofloxacin 0.3 % drops 1 drp ophthalmic (eye) Q4H Qty: 5 0RF valacyclovir 500 mg tablet 500 mg PO BID omeprazole-sodium bicarbonate 40-1.1 mg-gram capsule 1 cap PO QAM dextroamphetamine-amphetamine 15 mg tablet PO Referrals: Joshua Fernandez PA-C [Primary Care Provider, Medical] Stand Alone Forms: Patient Portal/API
--- NOTE | 2025-08-01 08:45 | DI.RAD.S_ITS ---
PROCEDURE: XR CHEST 1V INDICATIONS: Chest Pain TECHNIQUE: One view of the chest was acquired. COMPARISON: None. FINDINGS: Surgical changes and devices: Bilateral nipple piercings. Lungs and pleura: Lungs are clear. No pleural effusions or pneumothorax. Mediastinum: Mediastinal contours appear normal. Heart size is normal. Bones and chest wall: No suspicious bony lesions. Overlying soft tissues appear unremarkable. IMPRESSION: No acute cardiopulmonary abnormality is seen. Dictated by: Nela Buckley M.D. on 08/01/2025 at 8:34 Approved by: Nela Buckley M.D. on 08/01/2025 at 8:36
--- NOTE | 2025-08-01 08:48 | EKG_ITS ---
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
--- NOTE | 2025-08-01 08:56 | DI.CT.S_ITS ---
PROCEDURE: CT ABDOMEN PELVIS W CON INDICATIONS: RUQ pain/ hx of cholecystectomy TECHNIQUE: After the administration of intravenous contrast, axial sections acquired from the lung bases to the pubic symphysis. Coronal and sagittal reformats were performed. For radiation dose reduction, the following was used: automated exposure control, adjustment of mA and/or kV according to patient size. COMPARISON: None. FINDINGS: Image quality: Diagnostic. Lower Chest: No significant findings. ABDOMEN: Liver: No solid mass. Gallbladder: Surgically absent. There is no fluid collection or inflammation at the surgical bed. Biliary ducts: No biliary dilation. Pancreas: No ductal dilation. Spleen: Size is within normal limits. Adrenal Glands: No adrenal nodules. Kidneys and Ureters: No hydronephrosis. No solid mass. No complex renal cystic lesion which requires follow up. Stomach and Bowel: Normal colonic caliber, without significant wall thickening. Peritoneum: No abnormal intraperitoneal fluid. No free air. Ventral Wall: No significant ventral hernia. Abdominal Nodes: No retroperitoneal or mesenteric adenopathy by size criteria. Vessels: Aorta and inferior vena cava are normal in size. PELVIS: Pelvic Organs: Unremarkable. Bladder: No bladder wall thickening, accounting for underdistention. Pelvic Nodes: No enlarged lymph nodes. Miscellaneous: No inguinal hernias are seen. Bones: No aggressive osseous abnormality. No rib fracture. IMPRESSION: No CT evidence for the etiology of the patient's symptoms. Specifically, no evidence of post cholecystectomy complication, rib fracture, or other acute abdominal process. Dictated by: Nela Buckley M.D. on 08/01/2025 at 8:36 Approved by: Nela Buckley M.D. on 08/01/2025 at 8:46
[2025-08-01] MEDS: KETOROLAC 30 MG/ML VIAL 15 MG IV (09:06)
[2025-08-01] MEDS: LACTATED RINGERS 1,000 ML 1000 ML IV (09:06)
[2025-08-01] MEDS: ONDANSETRON 4 MG/2 ML INJ IV (09:06)
[2025-08-01 09:15] LABS: Add Manual Diff / Slide Review NO; Hematocrit 44.0 % (41-53); Hemoglobin 15.2 g/dL (13.5-17.5); Lymphocytes Absolute Auto 2100 /uL (1100-4500); Mean Corpuscular HGB Conc 34.6 % (30-36); Mean Corpuscular Hemoglobin 27.7 PG (26-34); Mean Corpuscular Volume 79.9 fL (80-100); Platelet Count 299 X10^3/uL (150-400)
[2025-08-01 09:26] LABS: INR 1.1 (0.9-1.3); Prothrombin Time 12.5 SECONDS (9.4-12.5)
[2025-08-01 09:28] LABS: PTT Partial Thromboplastin Tim 30 SECONDS (25.1-36.5)
[2025-08-01 09:30] LABS: Alanine Aminotransferase 102 IU/L (<50); Albumin 4.8 g/dL (3.5-5.0); Albumin Globulin Ratio 1.5 (1.0-2.8); Alkaline Phosphatase 94 U/L (38-126); Blood Urea Nitrogen 17 mg/dL (9-20); Calcium 9.4 mg/dL (8.4-10.2); Carbon Dioxide 23 mmol/L (22-32); Chloride 103 mmol/L (98-107); Creatine Kinase 58 U/L (55-170); Estimated Glomerular Filt Rate > 60 mL/min (>60); Globulin 3.3 g/dL (1.7-4.1); Glucose 108 mg/dL (70-99); HEMOLYSIS < 15 (0-50); Lipase 161 U/L (23-300); Magnesium 2.1 mg/dL (1.6-2.3); Potassium 3.9 mmol/L (3.4-5.1); Sodium 137 mmol/L (137-145); Total Protein 8.1 g/dL (6.3-8.2)
[2025-08-01 09:41] LABS: NT-proBNP (BNP-Adult 18+) < 20 pg/mL (<125); Troponin I < 0.012 ng/mL (0.01-0.034)
[2025-08-01] MEDS: NALOXONE 4 MG NASAL SPRAY MISC (10:21)
== END 2025-08-01 10:23 | disposition home or self-care (01) ==
PROVIDERS: Emergency Provider Family Medicine; PCP Physician Assistant Medical
DX: R10.11 Right upper quadrant pain (principal); F15.10 Other stimulant abuse, uncomplicated
CPT/HCPCS: 36415; 71045; 74177; 80053; 82550; 83690; 83735; 83880; 84484; 85025; 85610; 85730; 93005; 93010; 96361; 96374; 96375; 99284; A9270; J1885; J2405; Q9967

== ENCOUNTER 2025-08-13 20:03 | Emergency (ER) | payer SELFPAY ==
[2025-08-13 20:10] VITALS: BP 131/71; PULSE 91; RESP 16; TEMP 36.9; O2SAT 97; BMI 30.7
[2025-08-13 21:02] LABS: Influenza A - CEPHEID Flu A NEGATIVE (NEGATIVE); Influenza B - CEPHEID Flu B NEGATIVE (NEGATIVE)
[2025-08-13 21:15] LABS: COVID-19 CEPHEID 4-PLEX PCR Negative (Negative)
--- NOTE | 2025-08-14 05:39 | ED.URI ---
HPI - URI/Sore Throat General Chief Complaint: Upper Respiratory Symptoms Stated Complaint: Lt ear ache , stuffy nose , wheezing Time Seen by Provider: 08/13/25 21:09 Source: patient Mode of arrival: Ambulatory Related Data Home Medications ?Medication ?Instructions ?Recorded ?Confirmed valacyclovir 500 mg tablet 500 mg PO BID 07/10/24 05/13/25 dextroamphetamine-amphetamine 15 tab PO 03/20/25 05/13/25 mg tablet omeprazole 40 mg-sodium 1 cap PO QAM 03/20/25 05/13/25 bicarbonate 1.1 gram capsule Previous Rx's ?Medication ?Instructions ?Recorded ofloxacin 0.3 % eye drops 1 drp ophthalmic (eye) Q4H #5 mL 05/13/25 Allergies Allergy/AdvReac Type Severity Reaction Status Date / Time No Known Drug Allergies Allergy Verified 08/13/25 20:09 Patient History Surgical History (Updated 04/14/25 @ 15:08 by Miguelina Cardenas MD) Hx laparoscopic cholecystectomy tobacco type: smokeless tobacco alcohol intake frequency: 0-2 drinks per day Exam Initial Vital Signs Initial Vital Signs: Vital Signs Temperature 98.5 F 08/13/25 20:10 Pulse Rate 91 H 08/13/25 20:10 Respiratory Rate 16 08/13/25 20:10 Blood Pressure 131/71 08/13/25 20:10 Pulse Oximetry 97 08/13/25 20:10 Oxygen Delivery Method Room Air 08/13/25 20:10 MDM - URI/Sore Throat Lab Data Labs: Lab Results 08/13/25 Range/Units 20:16 SARS-CoV-2 (PCR) Negative (Negative) Influenza A (RT-PCR) Flu a negative (NEGATIVE) Influenza B (RT-PCR) Flu b negative (NEGATIVE) RSV (PCR) Negative (Negative) Discharge Plan Departure Patient Disposition: Left Without Being Seen Clinical Impression: Patient left without being seen Prescriptions: No Action ofloxacin 0.3 % drops 1 drp ophthalmic (eye) Q4H Qty: 5 0RF valacyclovir 500 mg tablet 500 mg PO BID omeprazole-sodium bicarbonate 40-1.1 mg-gram capsule 1 cap PO QAM dextroamphetamine-amphetamine 15 mg tablet PO
== END 2025-08-13 21:19 | disposition left against medical advice (07) ==
PROVIDERS: Emergency Provider Family Medicine; PCP Physician Assistant Medical
DX: R05.9 Cough, unspecified (principal); H92.02 Otalgia, left ear
CPT/HCPCS: 87637; 99281

== ENCOUNTER 2025-09-24 17:24 | Emergency (ER) | payer SELFPAY ==
--- NOTE | 2025-09-24 17:28 | DI.RAD.S_ITS ---
PROCEDURE: XR CHEST 1V
--- NOTE | 2025-09-24 17:28 | DI.CT.S_ITS ---
PROCEDURE: CT ANGIO HEAD AND NECK
--- NOTE | 2025-09-24 17:28 | DI.CT.S_ITS ---
PROCEDURE: CT STROKE
[2025-09-24 17:36] VITALS: PULSE 84; RESP 12; O2SAT 99
[2025-09-24 17:37] VITALS: BP 132/90; PULSE 86; RESP 18; TEMP 37.1; O2SAT 95; BMI 30.7
[2025-09-24 17:38] LABS: Add Manual Diff / Slide Review NO; Hematocrit 43.3 % (41-53); Hemoglobin 15.1 g/dL (13.5-17.5); Lymphocytes Absolute Auto 2500 /uL (1100-4500); Mean Corpuscular HGB Conc 34.8 % (30-36); Mean Corpuscular Hemoglobin 28.7 PG (26-34); Mean Corpuscular Volume 82.4 fL (80-100); Platelet Count 307 X10^3/uL (150-400)
[2025-09-24 17:48] LABS: INR 1.1 (0.9-1.3); Prothrombin Time 12.1 SECONDS (9.4-12.5)
[2025-09-24 17:51] LABS: PTT Partial Thromboplastin Tim 32 SECONDS (25.1-36.5)
[2025-09-24 17:52] LABS: Alanine Aminotransferase 90 IU/L (<50); Albumin 5.0 g/dL (3.5-5.0); Albumin Globulin Ratio 1.5 (1.0-2.8); Alkaline Phosphatase 99 U/L (38-126); Blood Urea Nitrogen 18 mg/dL (9-20); Calcium 9.4 mg/dL (8.4-10.2); Carbon Dioxide 25 mmol/L (22-32); Chloride 100 mmol/L (98-107); Creatine Kinase 100 U/L (55-170); Estimated Glomerular Filt Rate > 60 mL/min (>60); Globulin 3.3 g/dL (1.7-4.1); Glucose 99 mg/dL (70-99); HEMOLYSIS < 15 (0-50); Potassium 3.4 mmol/L (3.4-5.1); Sodium 138 mmol/L (137-145); Total Protein 8.3 g/dL (6.3-8.2)
--- NOTE | 2025-09-24 17:56 | EKG_ITS ---
[facility]
[2025-09-24 18:00] VITALS: PULSE 87; RESP 17; O2SAT 100
[2025-09-24 18:04] LABS: Troponin I < 0.012 ng/mL (0.01-0.034)
--- NOTE | 2025-09-24 18:04 | ED_ITS ---
HPI - Neuro Symptoms/Deficit
--- NOTE | 2025-09-24 18:04 | ED.NEUROSD ---
HPI - Neuro Symptoms/Deficit General Chief Complaint: Neuro Symptoms/Deficit Stated Complaint: Left side numbness/weakness Time Seen by Provider: 09/24/25 18:03 Source: patient Mode of arrival: EMS History of Present Illness HPI Narrative: 35-year-old male history of ADD, GERD brought in by ambulance from home for evaluation of altered mental status, according to at bedside patient has been gradually more confused over the day, patient was also complaining of left-sided numbness to the arm and leg, blood glucose 125 on route, patient able to follow commands appropriately, stroke alert was called immediately upon arrival. He denies any trauma or falls. Patient states that he has been under a lot of stress recently, states that he has been in a difficult place in life, just recently have a child has been ?delirious and tired states that because of this he did unfortunately use methamphetamine, states that he relapsed states it was only 1 time and it is what caused his confusion and his symptoms. He states that he is completely back to normal he is not having any neurological deficits at time of evaluation, he states that he feels completely normal does not want to see social work. On Anticoagulants: No Related Data Home Medications ?Medication ?Instructions ?Recorded ?Confirmed valacyclovir 500 mg tablet 500 mg PO BID 07/10/24 05/13/25 dextroamphetamine-amphetamine 15 tab PO 03/20/25 05/13/25 mg tablet omeprazole 40 mg-sodium 1 cap PO QAM 03/20/25 05/13/25 bicarbonate 1.1 gram capsule Previous Rx's ?Medication ?Instructions ?Recorded ofloxacin 0.3 % eye drops 1 drp ophthalmic (eye) Q4H #5 mL 05/13/25 Allergies Allergy/AdvReac Type Severity Reaction Status Date / Time No Known Drug Allergies Allergy Verified 09/24/25 17:38 Review of Systems Review of Systems Narrative: General: Positive drug abuse Denies fever, chills, weight loss HEENT: Denies headache, eye drainage, eye irritation, head trauma, sore throat, voice change Cardiovascular: Denies any chest pain, palpitations, tachycardia Respiratory: Denies any shortness of breath, cough, wheeze, stridor GI/: Denies any abdominal pain, nausea, vomiting, diarrhea, bright red blood per rectum, melanotic stools, urinary frequency, urinary retention, dysuria, hematuria MSK: Denies any joint pain, muscle pains, swelling Skin: Denies any rashes, lesions, discoloration Neuro: Positive left-sided numbness/weakness, Denies any headache, lightheadedness, dizziness, fainting, weakness Psych: Denies SI/HI Hematologic/Lymphatic On Anticoagulants: No Patient History Surgical History (Updated 04/14/25 @ 15:08 by Miguelina Cardenas MD) Hx laparoscopic cholecystectomy tobacco type: smokeless tobacco alcohol intake frequency: 0-2 drinks per day Exam Narrative Exam Narrative: General: Cooperative, well-developed, not in acute distress HEENT: Normocephalic, atraumatic, PERRLA, normal sclera, eyelids normal Neck: Active full range of motion, atraumatic Chest: Normal to inspection, negative crepitus, no overlying erythema ecchymosis Respiratory: Normal respiratory effort, not in acute respiratory distress, clear to auscultation bilaterally negative cough, wheeze, tachypnea, rhonchi, rales Cardiology: Regular rate rhythm negative gallop, murmur, rubs GI/: No tenderness to palpation, soft, non rigid, normal to inspection, exam deferred MSK: Full active range of motion in all 4 extremities, atraumatic, no tenderness to palpation of any bony prominences Skin: No rashes or lesions noted Neuro: NIH of 0 Alert awake oriented x3, moves all 4 extremities spontaneously, cranial nerves intact, able to answer all questions appropriately follows commands appropriately Psych: Cooperative, negative suicidal or homicidal ideations Initial Vital Signs Initial Vital Signs: Vital Signs Temperature 98.8 F 09/24/25 17:37 Pulse Rate 86 09/24/25 17:37 Respiratory Rate 18 09/24/25 17:37 Blood Pressure 132/90 09/24/25 17:37 Pulse Oximetry 95 09/24/25 17:37 Oxygen Delivery Method Room Air 09/24/25 17:37 Course Orders Ordered: ED Orders 09/24/25 17:[address] angio head and neck Stat XR chest 1V Stat Urine Drug Screen, Rapid Stat EKG-12 Lead Stat 09/24/25 17:30 Complete Blood Count AUTO DIFF Stat Comprehensive Metabolic Panel Stat PTT Partial Thromboplastin Calvin Stat Prothrombin Time INR Stat Troponin & CK Cardiac Panel Stat Ondansetron HCl (Ondansetron 4 Mg/2 Ml Inj) 4 mg IV NOW PRN PRN Reason: Nausea And Vomiting Ondansetron HCl (Ondansetron 4 Mg Odt) 4 mg PO NOW PRN PRN Reason: Nausea And Vomiting Vital Signs Vital signs: Vital Signs - 8 hr 09/24/25 17:37 Temperature 98.8 F Pulse Rate 86 Respiratory Rate 18 Blood Pressure 132/90 Pulse Oximetry 95 Oxygen Delivery Method Room Air MDM - Neuro Symptoms/Deficit Lab Data 09/24/25 17:30 09/24/25 17:30 Labs: Lab Results 09/24/25 Range/Units 17:30 WBC 10.3 (4.5-11.0) X10^3/uL RBC 5.25 (4.5-5.9) X10^6/uL Hgb 15.1 (13.5-17.5) g/dL Hct 43.3 (41-53) % MCV 82.4 (80-100) fL MCH 28.7 (26-34) PG MCHC 34.8 (30-36) % RDW 15.0 H (11.6-14.8) % Plt Count 307 (150-400) X10^3/uL Neut % (Auto) 68.2 (50-75) % Lymph % (Auto) 23.8 L (25-40) % [place] % (Auto) 7.1 (3-14) % Eos % (Auto) 0.6 L (2-4) % Baso % (Auto) 0.3 (0-2) % Neut # (Auto) 7000 (9659-2761) /uL Lymph # (Auto) 2500 (8019-5347) /uL [place] # (Auto) 700 (0-900) /uL Eos # (Auto) 100 (0-450) /uL Baso # (Auto) 0 (0-100) /uL PT 12.1 (9.4-12.5) SECONDS INR 1.1 (0.9-1.3) APTT 32 (25.1-36.5) SECONDS Sodium 138 (137-145) mmol/L Potassium 3.4 (3.4-5.1) mmol/L Chloride 100 (98-107) mmol/L Carbon Dioxide 25 (22-32) mmol/L BUN 18 (9-20) mg/dL Creatinine 0.93 (0.66-1.25) mg/dL Estimated GFR > 60 (>60) mL/min BUN/Creatinine Ratio 19.4 (6-22) Glucose 99 (70-99) mg/dL Calcium 9.4 (8.4-10.2) mg/dL Total Bilirubin 0.9 (0.2-1.3) mg/dL AST 55 (17-59) IU/L ALT 90 H (<50) IU/L Alkaline Phosphatase 99 (38-126) U/L Total Creatine Kinase 100 (55-170) U/L Total Protein 8.3 H (6.3-8.2) g/dL Albumin 5.0 (3.5-5.0) g/dL Globulin 3.3 (1.7-4.1) g/dL Albumin/Globulin Ratio 1.5 (1.0-2.8) ECG Data Interpretation: EKG interpreted ED physician sinus 90 beats per minute, QTC 464, QRS GA interval within normal limits, nonspecific ST changes no STEMI MDM Narrative Medical decision making narrative: 35-year-old male history of ADD, GERD presenting from home via ambulance for evaluation of left-sided weakness states it started gradually at around 10:00 a.m., at time of evaluation patient complaining of left-sided weakness numbness, stroke alert was immediately called CT CT angio head and neck without any acute findings, patient at time of my evaluation NIH of 0 he is not complaining of any symptoms at this time. He does verbalize that this is secondary to stress and drug abuse. States that he just recently had a child and has been having some issues with his , he states that he did use meth and is the reason for his symptoms. He states that he feels completely normal wants to go home. He does not want to talk to outreach and education social worker. Patient lab work unremarkable. He will be discharged home with outpatient follow up Discharge Plan Departure Patient Disposition: Home Clinical Impression: Amphetamine abuse-episodic Instructions: DI for Substance Use Disorder Activity Restrictions/Additional Instructions: Please follow up with your primary care doctor as needed Please read the discharge instructions sheet carefully and bring all papers to all doctor follow-up visits, as it may contain information that your doctor may want to see. Disease processes change and evolve, if your symptoms worsen or if you develop any new symptoms that are concerning to you please return for evaluation. Your evaluation today does not show any evidence of any life-threatening/serious illnesses requiring admission to the hospital or surgery. Please follow-up with your doctor for re-evaluation in approximately 1 day. Seek immediate medical attention for any worrisome symptoms. *If you do not have a primary care provider please contact the [facility] Resource line at [phone]. They will ask some questions about your medical history and help get you set up with a doctor in the community. Prescriptions: No Action ofloxacin 0.3 % drops 1 drp ophthalmic (eye) Q4H Qty: 5 0RF valacyclovir 500 mg tablet 500 mg PO BID omeprazole-sodium bicarbonate 40-1.1 mg-gram capsule 1 cap PO QAM dextroamphetamine-amphetamine 15 mg tablet PO Referrals: Joshua Fernandez PA-C [Primary Care Provider, Medical] Stand Alone Forms: Patient Portal/API
[2025-09-24 18:33] VITALS: BP 125/73; PULSE 91; RESP 14; O2SAT 100
== END 2025-09-24 18:33 | disposition home or self-care (01) ==
PROVIDERS: Family Medicine; Emergency Provider Student in an Organized Health Care Education/Training Program; PCP Physician Assistant Medical
DX: F15.10 Other stimulant abuse, uncomplicated (principal); R20.0 Anesthesia of skin
CPT/HCPCS: 70450; 70496; 70498; 71045; 80053; 82550; 84484; 85025; 85610; 85730; 93005; 99284

== ENCOUNTER 2025-10-17 10:06 | Emergency (ER) | payer OTHER, SELFPAY ==
[2025-10-17 10:10] VITALS: BP 143/92; PULSE 99; RESP 17; TEMP 37.1; O2SAT 99; BMI 31.5
--- NOTE | 2025-10-17 10:31 | PC.NURSE ---
pt in room, denies wanting to answer questions. States he doesn't care how he kills himself but he wants to kill himself.
--- NOTE | 2025-10-17 10:31 | PC.NURSE ---
accompanied patient in triage, patient stated prior to nurse entering the room I tried to jump off the bridge today and they brought me in. Triage nurse aware. Patient was brought to room 13 after triage was completed and provided paper scrubs. Patient cellphone, beaded bracelet, keys, wallet, black shoes, black shirt, and interiano shorts were placed into a patient belongings bag and locked in the [employer] cabinet. Patient is aware of a urine sample needed and agreed to let staff know when he needed to urinate.
[2025-10-17 10:44] LABS: Add Manual Diff / Slide Review NO; Hematocrit 41.5 % (41-53); Hemoglobin 14.0 g/dL (13.5-17.5); Lymphocytes Absolute Auto 1300 /uL (1100-4500); Mean Corpuscular HGB Conc 33.8 % (30-36); Mean Corpuscular Hemoglobin 28.3 PG (26-34); Mean Corpuscular Volume 83.6 fL (80-100); Platelet Count 279 X10^3/uL (150-400)
[2025-10-17 10:54] LABS: Acetaminophen < 10 ug/mL (10-30); Alanine Aminotransferase 50 IU/L (<50); Albumin 4.9 g/dL (3.5-5.0); Albumin Globulin Ratio 1.4 (1.0-2.8); Alkaline Phosphatase 84 U/L (38-126); Blood Urea Nitrogen 15 mg/dL (9-20); Calcium 9.3 mg/dL (8.4-10.2); Carbon Dioxide 26 mmol/L (22-32); Chloride 103 mmol/L (98-107); Estimated Glomerular Filt Rate > 60 mL/min (>60); Ethanol (ETOH) < 10 mg/dL (<10); Globulin 3.4 g/dL (1.7-4.1); Glucose 104 mg/dL (70-99); HEMOLYSIS < 15 (0-50); Potassium 4.0 mmol/L (3.4-5.1); Salicylate < 1.0 mg/dL (<20); Sodium 138 mmol/L (137-145); Total Protein 8.3 g/dL (6.3-8.2)
[2025-10-17 11:30] LABS: TSH w/ Reflex to FT4 1.16 uIU/mL (0.47-4.68)
[2025-10-17 12:20] LABS: COVID19 -Nasal RAPID Negative (Negative)
--- NOTE | 2025-10-17 13:27 | ED.PSYCH ---
HPI - Psych <Mario Zarate, DO - Last Filed: 10/18/25 07:47> General Chief Complaint: Psychiatric Symptoms Stated Complaint: Mental Health Crisis/Suicidal Time Seen by Provider: 10/17/25 10:27 Source: patient Mode of arrival: Family Vehicle History of Present Illness HPI Narrative: 35-year-old gentleman went to the bridge today in his life as he has many stressors in his life including a that is 6-month-old for which mother side is involved in drugs and he is tired of living having to deal with drama. He last used meth 2 days ago. Daughters mom also heavily and drugs that is not responsible and he is just trying to make ends meet and can not. Amaris found him at the side of the bridge. Other than what is stated 14 point review of system is negative. Related Data Home Medications ?Medication ?Instructions ?Recorded ?Confirmed valacyclovir 500 mg tablet 500 mg PO BID 07/10/24 05/13/25 dextroamphetamine-amphetamine 15 tab PO 03/20/25 05/13/25 mg tablet omeprazole 40 mg-sodium 1 cap PO QAM 03/20/25 05/13/25 bicarbonate 1.1 gram capsule Previous Rx's ?Medication ?Instructions ?Recorded ofloxacin 0.3 % eye drops 1 drp ophthalmic (eye) Q4H #5 mL 05/13/25 benzonatate 200 mg capsule 200 mg PO BID PRN cough #28 caps 09/30/25 Allergies Allergy/AdvReac Type Severity Reaction Status Date / Time No Known Drug Allergies Allergy Verified 10/17/25 10:10 Review of Systems <Mario Zarate, DO - Last Filed: 10/18/25 07:47> Review of Systems ROS Unobtainable: All systems reviewed & are unremarkable except as noted in HPI and below Patient History <Mario Zarate, DO - Last Filed: 10/18/25 07:47> Surgical History (Updated 04/14/25 @ 15:08 by Miguelina Cardenas MD) Hx laparoscopic cholecystectomy Social History Smoking Status: Former smoker Smoking Status: Former smoker tobacco type: smokeless tobacco alcohol intake frequency: 0-2 drinks per day Exam <Mario Zarate DO - Last Filed: 10/18/25 07:47> Narrative Exam Narrative: GENERAL: [35] year old patient appears stated age. Well-developed patient, in mild distress. HEAD: Atraumatic. Normocephalic. EYES: Pupils equal round and reactive. Extraocular motions intact. No scleral icterus. No injection or drainage. ENT: Nose without bleeding, purulent drainage. Throat without erythema, tonsillar hypertrophy or exudate. Airway patent. NECK: Trachea midline. Non tender CARDIOVASCULAR: Regular rate and rhythm without murmurs, gallops, or rubs. RESPIRATORY: Clear to auscultation. Breath sounds equal bilaterally. No wheezes, rales, or rhonchi. GASTROINTESTINAL: Abdomen soft, non-tender, nondistended. EXTREMITIES: No edema or joint tenderness. BACK: Nontender without deformity or crepitance. No flank tenderness. NEURO: AOx3. SKIN: No rash or erythema of visible areas Initial Vital Signs Initial Vital Signs: Vital Signs Temperature 98.7 F 10/17/25 10:10 Pulse Rate 99 H 10/17/25 10:10 Respiratory Rate 17 10/17/25 10:10 Blood Pressure 143/92 H 10/17/25 10:10 Pulse Oximetry 99 10/17/25 10:10 Oxygen Delivery Method Room Air 10/17/25 10:10 Psych Appearance: disheveled Mental Status: mental status grossly normal Speech and Movement: agitated Mood: anxious mood and irritable mood Affect: anxious affect Attitude: avoids eye contact Thought Process: flight of ideas Thought Content: suicidality Judgment: poor <Maciel Polk DO - Last Filed: 10/17/25 22:09> Initial Vital Signs Initial Vital Signs: Vital Signs Temperature 98.7 F 10/17/25 10:10 Pulse Rate 99 H 10/17/25 10:10 Respiratory Rate 17 10/17/25 10:10 Blood Pressure 143/92 H 10/17/25 10:10 Pulse Oximetry 99 10/17/25 10:10 Oxygen Delivery Method Room Air 10/17/25 10:10 Course <Mario Zarate DO - Last Filed: 10/18/25 07:47> Orders Ordered: Discontinued Medications Lorazepam (Lorazepam 0.5 Mg Tablet) 2 mg PO NOW ONE Stop: 10/17/25 17:33 Last Admin: 10/17/25 18:06 Dose: Not Given Documented By: DANIELLE Vital Signs Vital signs: Vital Signs - 8 hr 10/17/25 15:48 Pulse Rate 91 H Respiratory Rate 20 Blood Pressure 118/75 Pulse Oximetry 100 Oxygen Delivery Method Room Air <Maciel Polk, DO - Last Filed: 10/17/25 22:09> Orders Ordered: Discontinued Medications Lorazepam (Lorazepam 0.5 Mg Tablet) 2 mg PO NOW ONE Stop: 10/17/25 17:33 Last Admin: 10/17/25 18:06 Dose: Not Given Documented By: AI Vital Signs Vital signs: Vital Signs - 8 hr 10/17/25 15:48 Pulse Rate 91 H Respiratory Rate 20 Blood Pressure 118/75 Pulse Oximetry 100 Oxygen Delivery Method Room Air MDM - Psych <Mario Zarate, DO - Last Filed: 10/18/25 07:47> Lab Data 10/17/25 10:35 10/17/25 10:35 Labs: Lab Results 10/17/25 10/17/25 10/17/25 Range/Units 10:35 11:57 19:21 WBC 7.4 (4.5-11.0) X10^3/uL RBC 4.96 (4.5-5.9) X10^6/uL Hgb 14.0 (13.5-17.5) g/dL Hct 41.5 (41-53) % MCV 83.6 (80-100) fL MCH 28.3 (26-34) PG MCHC 33.8 (30-36) % RDW 14.0 (11.6-14.8) % Plt Count 279 (150-400) X10^3/uL Neut % (Auto) 76.2 H (50-75) % Lymph % (Auto) 18.0 L (25-40) % [place] % (Auto) 4.9 (3-14) % Eos % (Auto) 0.3 L (2-4) % Baso % (Auto) 0.6 (0-2) % Neut # (Auto) 5600 (6957-3712) /uL Lymph # (Auto) 1300 (2119-9947) /uL [place] # (Auto) 400 (0-900) /uL Eos # (Auto) 0 (0-450) /uL Baso # (Auto) 0 (0-100) /uL Sodium 138 (137-145) mmol/L Potassium 4.0 (3.4-5.1) mmol/L Chloride 103 (98-107) mmol/L Carbon Dioxide 26 (22-32) mmol/L BUN 15 (9-20) mg/dL Creatinine 0.90 (0.66-1.25) mg/dL Estimated GFR > 60 (>60) mL/min BUN/Creatinine Ratio 16.7 (6-22) Glucose 104 H (70-99) mg/dL Calcium 9.3 (8.4-10.2) mg/dL Total Bilirubin 0.7 (0.2-1.3) mg/dL AST 36 (17-59) IU/L ALT 50 H (<50) IU/L Alkaline Phosphatase 84 (38-126) U/L Total Protein 8.3 H (6.3-8.2) g/dL Albumin 4.9 (3.5-5.0) g/dL Globulin 3.4 (1.7-4.1) g/dL Albumin/Globulin Ratio 1.4 (1.0-2.8) TSH 1.16 (0.47-4.68) uIU/mL Salicylates < 1.0 (<20) mg/dL U Opiates 300ng/mL cut Negative (Negative) Ur Oxycodone Screen Negative (Negative) Urine Methadone Screen Negative (Negative) Acetaminophen < 10 (10-30) ug/mL Ur Barbiturates Screen Negative (Negative) U Tricyclic Antidepress Negative (Negative) Ur Phencyclidine Scrn Negative (Negative) Ur Amphetamines Screen Positive H (Negative) U Methamphetamines Scrn Positive H (Negative) Ur MDMA Scrn (Ecstasy) Positive H (Negative) U Benzodiazepines Scrn Negative (Negative) Urine Cocaine Screen Negative (Negative) U Marijuana (THC) Screen Negative (Negative) Urine pH Normal (Normal) Urine Specific [place] Normal (Normal) Ethyl Alcohol < 10 (<10) mg/dL Ur Creatinine Normal (Normal) SARS-CoV-2 (PCR) Negative (Negative) Urine Dip Bedside Urine Glucose Negative Bedside Urine Bilirubin - Negative Bedside Urine Ketone +/- 5 Urine Specific [place] 1.025 Bedside Urine Occult Blood - Negative Bedside Urine pH 6.0 Bedside Urine Protein +/- 15 Bedside Urine Urobilinogen - Negative Bedside Urine Nitrite - Negative Bedside Urine Leukocytes - Negative Esterase MDM Narrative Medical decision making narrative: All lab work, vital signs, nurse triage note, medication list, previous ER visits, and all imaging studies reviewed. WBC 7.4 hemoglobin 14 platelet 279 sodium 138 potassium 4.0 chloride 103 CO2 26 BUN 15 creatinine 0.9 close 104 TSH 1.16 COVID negative alcohol level less than 10. Patient did not give urine sample salicylate level less than 1.0. electroplating worker and myself of seeing the patient and agree patient is gravely disabled DC are has been dispatched. Patient signed out to at shift change pending final disposition. Patient medically cleared at this time, DCR has been dispatched given patient with a high risk of SI history of drug abuse brought in by police. Dr. Polk: Patient was signed out to me by morning provider, patient has been medically cleared at this time, DCR has been dispatched given patient involuntary with a history of drug abuse and active SI thoughts given the fact that he was brought in by police wanting to ?end it and jump off the bridge. At this time patient is calm and cooperative final disposition pending DCR evaluation 2052: Was informed by nursing staff that patient eloped from the emergency department, we will contact police Department at this time 2110: I was informed by police that they were able to locate the patient and are bringing the patient back into the emergency department, DCR is here to evaluate the patient 2207: Patient was evaluated by DCR, patient not obtainable, patient was given resources and will be followed up with a safety plan outpatient, at time of my evaluation patient has not having any active SI HI, patient was given strict return precautions verbalized understanding agrees to being discharged home with outpatient follow up <Maciel Polk, - Last Filed: 10/17/25 22:09> Lab Data Labs: Lab Results 10/17/25 10/17/25 10/17/25 Range/Units 10:35 11:57 19:21 WBC 7.4 (4.5-11.0) X10^3/uL RBC 4.96 (4.5-5.9) X10^6/uL Hgb 14.0 (13.5-17.5) g/dL Hct 41.5 (41-53) % MCV 83.6 (80-100) fL MCH 28.3 (26-34) PG MCHC 33.8 (30-36) % RDW 14.0 (11.6-14.8) % Plt Count 279 (150-400) X10^3/uL Neut % (Auto) 76.2 H (50-75) % Lymph % (Auto) 18.0 L (25-40) % [place] % (Auto) 4.9 (3-14) % Eos % (Auto) 0.3 L (2-4) % Baso % (Auto) 0.6 (0-2) % Neut # (Auto) 5600 (3445-6839) /uL Lymph # (Auto) 1300 (8129-8499) /uL [place] # (Auto) 400 (0-900) /uL Eos # (Auto) 0 (0-450) /uL Baso # (Auto) 0 (0-100) /uL Sodium 138 (137-145) mmol/L Potassium 4.0 (3.4-5.1) mmol/L Chloride 103 (98-107) mmol/L Carbon Dioxide 26 (22-32) mmol/L BUN 15 (9-20) mg/dL Creatinine 0.90 (0.66-1.25) mg/dL Estimated GFR > 60 (>60) mL/min BUN/Creatinine Ratio 16.7 (6-22) Glucose 104 H (70-99) mg/dL Calcium 9.3 (8.4-10.2) mg/dL Total Bilirubin 0.7 (0.2-1.3) mg/dL AST 36 (17-59) IU/L ALT 50 H (<50) IU/L Alkaline Phosphatase 84 (38-126) U/L Total Protein 8.3 H (6.3-8.2) g/dL Albumin 4.9 (3.5-5.0) g/dL Globulin 3.4 (1.7-4.1) g/dL Albumin/Globulin Ratio 1.4 (1.0-2.8) TSH 1.16 (0.47-4.68) uIU/mL Salicylates < 1.0 (<20) mg/dL U Opiates 300ng/mL cut Negative (Negative) Ur Oxycodone Screen Negative (Negative) Urine Methadone Screen Negative (Negative) Acetaminophen < 10 (10-30) ug/mL Ur Barbiturates Screen Negative (Negative) U Tricyclic Antidepress Negative (Negative) Ur Phencyclidine Scrn Negative (Negative) Ur Amphetamines Screen Positive H (Negative) U Methamphetamines Scrn Positive H (Negative) Ur MDMA Scrn (Ecstasy) Positive H (Negative) U Benzodiazepines Scrn Negative (Negative) Urine Cocaine Screen Negative (Negative) U Marijuana (THC) Screen Negative (Negative) Urine pH Normal (Normal) Urine Specific [place] Normal (Normal) Ethyl Alcohol < 10 (<10) mg/dL Ur Creatinine Normal (Normal) SARS-CoV-2 (PCR) Negative (Negative) Urine Dip Bedside Urine Glucose Negative Bedside Urine Bilirubin - Negative Bedside Urine Ketone +/- 5 Urine Specific [place] 1.025 Bedside Urine Occult Blood - Negative Bedside Urine pH 6.0 Bedside Urine Protein +/- 15 Bedside Urine Urobilinogen - Negative Bedside Urine Nitrite - Negative Bedside Urine Leukocytes - Negative Esterase MDM Narrative Medical decision making narrative: All lab work, vital signs, nurse triage note, medication list, previous ER visits, and all imaging studies reviewed. WBC 7.4 hemoglobin 14 platelet 279 sodium 138 potassium 4.0 chloride 103 CO2 26 BUN 15 creatinine 0.9 close 104 TSH 1.16 COVID negative alcohol level less than 10. Patient did not give urine sample salicylate level less than 1.0. electroplating worker and myself of seeing the patient and agree patient is gravely disabled DC are has been dispatched. Patient medically cleared at this time, DCR has been dispatched given patient with a high risk of SI history of drug abuse brought in by police. Dr. Polk: Patient was signed out to me by morning provider, patient has been medically cleared at this time, DCR has been dispatched given patient involuntary with a history of drug abuse and active SI thoughts given the fact that he was brought in by police wanting to ?end it and jump off the bridge. At this time patient is calm and cooperative final disposition pending DCR evaluation 2052: Was informed by nursing staff that patient eloped from the emergency department, we will contact police Department at this time 2110: I was informed by police that they were able to locate the patient and are bringing the patient back into the emergency department, DCR is here to evaluate the patient 2207: Patient was evaluated by DCR, patient not obtainable, patient was given resources and will be followed up with a safety plan outpatient, at time of my evaluation patient has not having any active SI HI, patient was given strict return precautions verbalized understanding agrees to being discharged home with outpatient follow up Discharge Plan Departure Patient Disposition: Home Clinical Impression: Suicidal ideation, Drug abuse Instructions: DI for Suicidal Ideation-Adult Activity Restrictions/Additional Instructions: Please follow up with the primary care doctor and the care plan/team that was set up for you Please read the discharge instructions sheet carefully and bring all papers to all doctor follow-up visits, as it may contain information that your doctor may want to see. Disease processes change and evolve, if your symptoms worsen or if you develop any new symptoms that are concerning to you please return for evaluation. Your evaluation today does not show any evidence of any life-threatening/serious illnesses requiring admission to the hospital or surgery. Please follow-up with your doctor for re-evaluation in approximately 1 day. Seek immediate medical attention for any worrisome symptoms. *If you do not have a primary care provider please contact the [facility] Resource line at [phone]. They will ask some questions about your medical history and help get you set up with a doctor in the community. Prescriptions: No Action ofloxacin 0.3 % drops 1 drp ophthalmic (eye) Q4H Qty: 5 0RF valacyclovir 500 mg tablet 500 mg PO BID omeprazole-sodium bicarbonate 40-1.1 mg-gram capsule 1 cap PO QAM dextroamphetamine-amphetamine 15 mg tablet PO benzonatate 200 mg capsule 200 mg PO BID PRN (Reason: cough) Qty: 28 0RF Referrals: Joshua Fernandez PA-C [Primary Care Provider, Medical] Stand Alone Forms: Patient Portal/API
--- NOTE | 2025-10-17 14:24 | CM.SWNOTE ---
ED PET AMBASSADOR Assessment Note: PET AMBASSADOR - Editor News Assessment PET AMBASSADOR/Editor News Assessment Time Spent with Patient Start date 10/17/25 Visit Start Time 13:00 End date 10/17/25 Visit End Time 13:45 Total time Care 45 minutes total Management spent on patient visit-in minutes Mental Health Screening Include Onset, Duration, Intensity Presenting Problem Patient presented to the ED today via [facility]. It is reported he was found in his car at [place] with intention to jump and end his life. Precipitating Event( Patient states he has been under a lot of stress with a s) 5 month old daughter and some relationship issues with the mother of his daughter/partner. He states he has been attempting to have his partner and himself stop utilizing methamphetamines but he has been unsuccessful ; he has been experiencing remorse around his use but has not been able to cease use independently. Patient states he has been experiencing left sided pain ( multiple ED visits at this hospital and neighboring hospital for this) and it has been assumed to be psychosomatic pain because of stress. Patient states he has not slept in 6 days. Patient partner states he was seen sleeping last night. Patient Strengths Patient is attempting to disclose information to best of ability, he has been supported by his partner, Ariela Mary ph# . He seems to want to be a present father for his 5month old. Current Behavioral None reported by patient. Patient partner states he is Health Provider(s) on a waitlist for a MH clinic in [place] (could not Include Facility, confirm name) but patient not able to get in soon as he Provider, Ph. # is deemed low risk previously. Psych. Hx Mental History of ADD (previous prescription for Adderall) and Health and Chemical suspected PTSD for patient's disclosure and partner Dependency confirmation of experiencing night terrors frequently . Family Hx of None reported in assessment. Behavioral Abuse Psychiatric None reported in assessment. Per Mary, patient was seen Hospitalizations ( at [facility] ED on 10/03/2025 for an date(s)/location) acute stress reaction, he was assessed by a MHP and identified him to be low risk and discharge home. There was no plan or intent identified on that day. Psychosocial Patient is a 35yo male, resident of [place] with his information & partner, their 5 month old daughter and his 10yo Support Systems stepdaughter. School/Work Patient is a [employer], he has started a new job in [place] and was exposed to black mold in the last week. Substance Abuse Screening Include Onset, Duration, Intensity Presenting Problem History of meth use, history of alcohol use disorder. Patient does not see a provider to address this. Patient states his last use was two days ago, he wants to stop but has been finding difficulty with stopping due to his environment. Legal Concerns Legal Matters - [place] of incarceration in [place] for 4 years, no report Outstanding Issues of current legal issues. Mental Status Orientation (Person/ AOx3 Place/Time) Affect (Congruent Labile, flat, dysthymic, congruent with mood with Mood?) Thought Content - None reported by patient. Partner states he was seen at [facility] ED on 09/24/25 for altered mental Obsessions, status and concerns of stroke. Was found to be due to Delusions, meth use. Patient partner explains it as a dream state Hallucinations , he kept saying he could not see. That was the only time I saw him like that. Thought Processes ( Thought blocking, tangential Logical-Coherent- Goal Directed- Detailed-Tangential- Circumstantial- Logical-Disorganized -Thought Blocking) Speech (Normal-Slow- Soft, slurred Iwvmhlc-Tlkvp-Cccf- Loud-Pressured) Motor (Normal- Excessive Gvhaaaeaz-Wucs-Ltskl ) Insight (Good-Fair- Poor/limited Poor/Limited) Judgement (Good-Fair Poor/limited -Poor/Limited) Impulse Control ( Impaired Adequate-Impaired) Memory (Immediate- Remote Recent-Remote, Impaired-Intact) Concentration ( Impaired Intact-Impaired) Attention (Intact- Impaired Impaired) Behavior ( Inappropriate - guarded, not easily directable. Wants Appropriate- to sit upright and chooses to sit on toilet in room and Inappropriate) declines when offered a chair/recliner. Risk Assessment Suicidal Ideation ( Yes: High Risk Plan) Homicidal Ideation ( No Plan) Comment [place]IA-SUICIDE SEVERITY RATING SCALE 1) Have you wished you were or wished you could go to sleep and not wake up? YES 2) Have you actually had any thoughts of killing yourself? YES 3) Have you been thinking about how you might do this? YES 4) Have you had these thoughts and had some intention of acting on them? YES 5) Have you started to work out or worked out the details of how to kill yourself? Do you intend to carry out this plan? YES 6) Have you ever done anything, started to do anything, or prepared to do anything to end your life? YES If YES, ask: Was this within the past three months? YES Intervention Intervention Reviewed chart and discussed with ED Provider pt's medical status and discharge needs. ED PET AMBASSADOR meets with patient. Patient endorses suicidality, with intent, hopelessness. Patient slurring in speech and guarded in affect. Patient explains stressors at home with meth use, regret with meth use and attempts to cease as well as get his partner to stop as well for the sake of their 5month old. Patient kept eyes closed during assessment, tearful at times and turned towards wall most of assessment; muttering under breath, seemed to be processing thoughts out loud to himself. Denies auditory or visual hallucinations, unclear if responding to internal stimuli. ED PET AMBASSADOR and patient discuss goals of care. Patient not able to clearly answer if he is voluntary for assistance. When asked if he would like further help via inpatient referral, he states, What is that going to do? I want to get out of here. I shouldn't be here anymore. Patient still states he is actively suicidal. PET AMBASSADOR calls Amaris Siddiqui, ph# [phone] to discuss patient. Amaris states he was dispatched due to call from patient's partner, Ariela. Amaris states that in his assessment, patient did not state he was voluntary to treatment necessarily but he was open to going to the hospital because he did not feel safe with going home. PET AMBASSADOR called pt partner, Ariela, who states patient gets in his own head and minimal ability to cope. Patient partner states he has a history of ADD due to a prescription of Adderall but has not seen patient take it recently. Patient partner states patient has had a recurring pattern of being good for one week [going to work, participating in ADLs] then he can't do anything because of his pain and stress. She agrees that inpatient treatment would be helpful because patient has made attempts at outpatient treatment and has not been able to follow through. At this time, it is the opinion of this PET AMBASSADOR that patient would benefit from inpatient psychiatric hospitalization for SI, grave disability. PET AMBASSADOR informs ED provider, Dr. Zarate, who indicates agreement for DCR dispatch when medically cleared. Plan RA Plan Once patient is medically clear, ED staff will attempt to find inpatient placement for patient with collaboration of Designated Crisis Responder. ARAMIS Griggs
[2025-10-17 15:48] VITALS: BP 118/75; PULSE 91; RESP 20; O2SAT 100
--- NOTE | 2025-10-17 17:16 | PC.NURSE ---
pt denies urge to urinate, gave urinal to pt, offered comfort measures (ear plugs, chair, blanklets, etc) pt declined pt has safety tray/snacks at bedside, encouraged to drink fluids and get urine sample, pt anxious but cooperative at this time.
--- NOTE | 2025-10-17 17:44 | PC.NURSE ---
10/17/2025 @1740. RN assumed one-to-one observation care from Lyudmila Velázquez RN. Pt currently standing quietly in corner take occasional deep breaths.
--- NOTE | 2025-10-17 17:49 | PC.NURSE ---
Addendum entered by Frances Valenzuela RN 10/17/25 18:11: Luana AGUILA RN assigned to pt at this time. Original Note: 10/17/2025 @7167 CHURN OPERATOR MARGARINE currently in room conversing w/ pt. Pt stating he would like to call his mother at this time. Pt agitated d/t being stuck in this room and in this situation. @1752 pt stating he wants to get out of here appearing slightly agitated.
--- NOTE | 2025-10-17 18:01 | PC.NURSE ---
Addendum entered by Frances Valenzuela RN 10/17/25 18:10: Luana AGUILA RN assigned to pt. Original Note: 10/17/2025 @1801 CHIEF BUSINESS DEVELOPMENT OFFICER sitting on ground conversing w/ pt. Pt currently expressing desire to leave. 180 Pt stood up and is now pacing around in room agitated, declining medication and oral fluids at this time stating he will not play these games anymore. 180 CHIEF BUSINESS DEVELOPMENT OFFICER exits room. Humera Valenzuela RN remains on one-to-one observation duty in room.
--- NOTE | 2025-10-17 18:33 | PC.NURSE ---
10/17/2025 @1832 Pt kneeling in corner. RN conversing w/ pt. Asking to speak to health social work professor at this time.
--- NOTE | 2025-10-17 18:42 | PC.NURSE ---
Addendum entered by Frances Valenzuela RN 10/17/25 18:47: Nita Asher CNA conversing w/ pt who is agitated and claiming he did not state he wanted to harm himself. Nita Asher CNA stated she was present for triage when pt did claim desire to self harm today. Original Note: 10/17/2025 @1842 Pt denying statement to harm himself. PT stating he only had thoughts of self-harm and only desired fresh air
--- NOTE | 2025-10-17 18:45 | PC.NURSE ---
10/17/2025 @7693 Pt began talking to mother utilizing ER charge phone.
--- NOTE | 2025-10-17 18:50 | PC.NURSE ---
10/17/2025 @1850 Pt agitated, beginning to raise voice while conversing w/ mother via ER charge phone. Stating he will not check in to rehab and would rather be in a body bag. Pt pacing in room.
--- NOTE | 2025-10-17 18:53 | PC.NURSE ---
10/17/2025 @1853. Pt completed phone call w/ mother on ER charge phone. Requesting to speak to director social welfare. Continues to pace in room.
--- NOTE | 2025-10-17 18:56 | PC.NURSE ---
10/17/2025 @1856 Physical Therapy Aide Letitia in room and conversing w/ pt. Pt states I do not do well in forced treatment and requesting outpatient treatment options. Pt stating he only had thoughts of self-harm but was not going to follow through with thought. Pt stated he just needed to take a drive. Pt expressing concerns about missing work on Sunday. Pt also stating concerns about SO doing drugs w/ 5 month old daughter present. @1859 Letitia Physical Therapy Aide discussing safety plan options as well as discussing voluntary safety plan options for today. Pt states voluntary safety options are not of interest to him at this time. @1902 Physical Therapy Aide discussing crisis responder phone calls during the next days for outpatient treatment. Pt taking this option well and expressing interest. @190 house worker general asking pt if he feels comfortable going home at this time. Pt states if there can be confirmation that SO will not be present at home he would feel comfortable. 190 Pt states he would like to get home to his daughter But would be home alone. States there is no firearms present in home. house worker general discussing if possible, if pt could provide urine sample per request. Pt states he does not feel need to urinate at this time to leave sample. Stating I will sign discharge papers right now. @1908 Physical Therapy Aide Letitia discussing she will confirm SO will not be present at home before discharge. Pt now requesting personal clothes to be returned to him.
--- NOTE | 2025-10-17 19:16 | PC.NURSE ---
10/17/2025 @1914 Report given to Genesis Read CNA for one-to-one observation. Pt continues to pace but appears more calm.
--- NOTE | 2025-10-17 19:34 | PC.NURSE ---
CHOCOLATE TEMPERER note: pt requested to change into his t-shirt. RN advised we could accommodate that at this time. Pt understood
[2025-10-17 19:44] LABS: Ur Specific Gravity Normal (Normal)
[2025-10-17 19:45] LABS: UR Morphine/Opiate cutoff 300 Negative (Negative); Urine MDMA Positive (Negative); Urine Methamphetamines Positive (Negative); Urine Tetrahydrocannabinol Negative (Negative); Urine Tricyclic Antidepressant Negative (Negative)
--- NOTE | 2025-10-17 20:02 | PC.NURSE ---
10/17/2025 at 1800 this nurse sat with pt and listened to pt concerns, pt had/has pressured speech and appears intermittently agitated, and anxious, when pt offered ativan to help with restlessness, pt declined stating he doesn't want to play this game this nurse told pt to let staff know if he changes his mind-- informed provider.
--- NOTE | 2025-10-17 20:09 | CM.SWNOTE ---
ED GRADALL OPERATOR Note: GRADALL OPERATOR spoke with patient mother, David ph# [phone] who lives in [place], [place]. She states her son has had many years of behavioral issues which ultimately got him incarcerated for 4 years. Patient mother gave insight that incarceration or feeling trapped can be a precipitating factor for patient. Patient mother believes getting him mental health assistance would be beneficial for him. She agreed to talk to patient via phone and advocated for need for cooperation and UA sample. GRADALL OPERATOR consulted with PRINCESS Donato, ph# [phone], who states she is willing to detain patient before UA provided which would require restrictive care plan of possible UA obtained via 4 point restraint and cath. (UA required for placement). Patient requested this GRADALL OPERATOR enter room. Patient was speaking clearly and not as slurred as earlier this afternoon. Patient endorses wanting to safety plan, If you guys have to call me every night to see if I am good, I will do it. Patient expresses, Can't a person just say stuff out of anger? Just because I had thoughts doesn't mean I want to kill myself. Patient states he has no firearms at home and would feel safe with dc home if his partner and children are not in the home to cause additional emotional stress. Patient requesting to change into his personal clothes and get his phone from locked [employer] cabinet. GRADALL OPERATOR attempted to utilize C-SSRS screening tool for SI, patient not able to give definite yes or no answer. GRADALL OPERATOR discussed plan of care and offered care plan options to patient: 1. Voluntary treatment to get him MH assistance but least restrictive option, patient declined this and stated he needs to go to work on Sunday. 2. [facility] follow up for the next few days and Intensive outpatient referral, patient somewhat agreeable to this but seems to be discouraged with follow up due to long wait lists he has been placed on already ([facility] and [facility]). After above conversation, patient was able to provide a UA sample. GRADALL OPERATOR discussed above with ED Provider, Dr. Massey, who states DCR dispatch would be most appropriate due to patient presentation. DCR was dispatched with an ETA of 2044. GRADALL OPERATOR sent clinical packet to DCR for review to [employer] PRINCESS fax and secure email to DCR Kinga directly. Plan: DCR to assess for suspected detainment and MH placement. Letitia Shannon, DISTRIBUTION CENTER SUPERVISOR
--- NOTE | 2025-10-17 20:15 | PC.NURSE ---
ACCESS DEVELOPER note: pt states can you let them know I am working with them but I would like my clothes. I will stay until nephrology social worker is done but I would feel more comfortable in my own clothing. This ACCESS DEVELOPER explained that we are working on a safe discharge plan before we can get him his belongings.
--- NOTE | 2025-10-17 20:47 | PC.NURSE ---
Pt is requesting to leave now. States you cant keep me here. I am being nice but I'm getting frustrated, I need my stuff and I need to leave. BEVEL OPERATOR explained DCR should be arriving soon, ETA of 2044. Pt requesting anxiety PRN
--- NOTE | 2025-10-17 20:56 | PC.NURSE ---
Call to 911 to return patient back to ER. Pt was escalating and argued with this nurse about leaving. Many attempts prior to this nurse encounter with patient to remain in room. DCR will be contacted if 911 (police) unable to return with patient for his evaluation and treatment.
--- NOTE | 2025-10-17 21:06 | PC.NURSE ---
Pt returned with police escort. They will stay with Kinga DCR until she has completed evaluation.
--- NOTE | 2025-10-17 21:07 | PC.NURSE ---
AMMUNITION STORAGE SUPERINTENDENT note: Pt eloped out of front ED. Brought back by [employer]. DCR David in room speaking with pt. security and [employer] outside room door for observation
--- NOTE | 2025-10-17 21:31 | PC.NURSE ---
Pt speaking with DCR
--- NOTE | 2025-10-17 22:39 | PC.NURSE ---
PRINTED CIRCUIT BOARD DESIGNER note: pt discharged. end of observation
--- NOTE | 2025-10-17 22:39 | PC.NURSE ---
pt demeanor calm after DCR plan placed, pt agreeable to discharge plan, how to f/u [facility], when/how to return to ER, and agrees to plan pt spouse offered to picking tech pt from ER but pt declined wanting to take cab to spouse can stay at home with kids. gave gerard number, pt has fully charged phone and personal items, wallet, clothes returned
[2025-10-17 22:42] VITALS: BP 129/85; PULSE 82; RESP 16; O2SAT 96
== END 2025-10-17 22:44 | disposition home or self-care (01) ==
PROVIDERS: Family Medicine; Emergency Provider Student in an Organized Health Care Education/Training Program; PCP Physician Assistant Medical
DX: R45.851 Suicidal ideations (principal); F15.10 Other stimulant abuse, uncomplicated
CPT/HCPCS: 36415; 80053; 80305; 80320; 80329; 81003; 84443; 85025; 87635; 99284; G0480

== ENCOUNTER 2025-10-18 18:41 | Emergency (ER) | payer OTHER, SELFPAY ==
[2025-10-18 18:50] VITALS: BP 122/77; PULSE 98; RESP 18; TEMP 36.8; O2SAT 97; BMI 29.9
--- NOTE | 2025-10-18 19:00 | ED.GENADULT ---
HPI - General Adult General Chief complaint: Weakness Stated complaint: Dehydration Time Seen by Provider: 10/18/25 18:57 Source: patient Mode of arrival: Ambulatory History of Present Illness HPI narrative: 35-year-old male history of SI drug abuse comes into the ED from home for evaluation of dehydration, patient states that he is just feeling like he can not ?catch up with drinking water and electrolytes. States that he was here yesterday for SI, currently not having any active SI or HI, states has been following up with his care/safety plan that was set up for him. He states that he is only here to make sure he is ?doing okay. He denies any headache visual disturbance chest pain shortness breath fever chills nausea vomiting abdominal pain or any other GI/ symptoms time. Related Data Home Medications ?Medication ?Instructions ?Recorded ?Confirmed valacyclovir 500 mg tablet 500 mg PO BID 07/10/24 05/13/25 dextroamphetamine-amphetamine 15 tab PO 03/20/25 05/13/25 mg tablet omeprazole 40 mg-sodium 1 cap PO QAM 03/20/25 05/13/25 bicarbonate 1.1 gram capsule Previous Rx's ?Medication ?Instructions ?Recorded ofloxacin 0.3 % eye drops 1 drp ophthalmic (eye) Q4H #5 mL 05/13/25 benzonatate 200 mg capsule 200 mg PO BID PRN cough #28 caps 09/30/25 Allergies Allergy/AdvReac Type Severity Reaction Status Date / Time No Known Drug Allergies Allergy Verified 10/18/25 18:49 Review of Systems Review of Systems Narrative: General: Positive dehydration Denies fever, chills, weight loss HEENT: Denies headache, eye drainage, eye irritation, head trauma, sore throat, voice change Cardiovascular: Denies any chest pain, palpitations, tachycardia Respiratory: Denies any shortness of breath, cough, wheeze, stridor GI/: Denies any abdominal pain, nausea, vomiting, diarrhea, bright red blood per rectum, melanotic stools, urinary frequency, urinary retention, dysuria, hematuria MSK: Denies any joint pain, muscle pains, swelling Skin: Denies any rashes, lesions, discoloration Neuro: Denies any headache, lightheadedness, dizziness, fainting, weakness Psych: Denies SI/HI Patient History Surgical History (Updated 04/14/25 @ 15:08 by Miguelina Cardenas MD) Hx laparoscopic cholecystectomy tobacco type: smokeless tobacco alcohol intake frequency: 0-2 drinks per day Exam Narrative Exam Narrative: General: Cooperative, well-developed, not in acute distress HEENT: Normocephalic, atraumatic, PERRLA, normal sclera, eyelids normal Neck: Active full range of motion, atraumatic Chest: Normal to inspection, negative crepitus, no overlying erythema ecchymosis Respiratory: Normal respiratory effort, not in acute respiratory distress, clear to auscultation bilaterally negative cough, wheeze, tachypnea, rhonchi, rales Cardiology: Regular rate rhythm negative gallop, murmur, rubs GI/: No tenderness to palpation, soft, non rigid, normal to inspection, exam deferred MSK: Full active range of motion in all 4 extremities, atraumatic, no tenderness to palpation of any bony prominences Skin: No rashes or lesions noted Neuro: Alert awake oriented x3, moves all 4 extremities spontaneously, cranial nerves intact, able to answer all questions appropriately follows commands appropriately Psych: Cooperative, negative suicidal or homicidal ideations Initial Vital Signs Initial Vital Signs: Vital Signs Temperature 98.3 F 10/18/25 18:50 Pulse Rate 98 H 10/18/25 18:50 Respiratory Rate 18 10/18/25 18:50 Blood Pressure 122/77 10/18/25 18:50 Pulse Oximetry 97 10/18/25 18:50 Oxygen Delivery Method Room Air 10/18/25 18:50 Course Orders Ordered: ED Orders 10/18/25 19:08 CBC Auto Diff [Complete Blood Count AUTO DIFF] Stat CMP [Comprehensive Metabolic Panel] Stat MAG [Magnesium] Stat Sodium Chloride (Normal Saline 0.9%) 1,000 mls @ 1,000 mls/hr IV BOLUS ONE Stop: 10/18/25 19:58 Last Admin: 10/18/25 19:26 Dose: 1,000 mls/hr Documented By: TISH Vital Signs Vital signs: Vital Signs - 8 hr 10/18/25 18:50 Temperature 98.3 F Pulse Rate 98 H Respiratory Rate 18 Blood Pressure 122/77 Pulse Oximetry 97 Oxygen Delivery Method Room Air Medical Decision Making Lab Data 10/18/25 19:08 10/18/25 19:08 Labs: Lab Results 10/18/25 Range/Units 19:08 WBC 7.5 (4.5-11.0) X10^3/uL RBC 4.92 (4.5-5.9) X10^6/uL Hgb 14.1 (13.5-17.5) g/dL Hct 41.4 (41-53) % MCV 84.1 (80-100) fL MCH 28.7 (26-34) PG MCHC 34.1 (30-36) % RDW 14.4 (11.6-14.8) % Plt Count 307 (150-400) X10^3/uL Neut % (Auto) 60.5 (50-75) % Lymph % (Auto) 31.7 (25-40) % [place] % (Auto) 5.5 (3-14) % Eos % (Auto) 1.7 L (2-4) % Baso % (Auto) 0.6 (0-2) % Neut # (Auto) 4500 (5525-4544) /uL Lymph # (Auto) 2400 (1304-1707) /uL [place] # (Auto) 400 (0-900) /uL Eos # (Auto) 100 (0-450) /uL Baso # (Auto) 0 (0-100) /uL Sodium 142 (137-145) mmol/L Potassium 4.2 (3.4-5.1) mmol/L Chloride 104 (98-107) mmol/L Carbon Dioxide 30 (22-32) mmol/L BUN 21 H (9-20) mg/dL Creatinine 0.97 (0.66-1.25) mg/dL Estimated GFR > 60 (>60) mL/min BUN/Creatinine Ratio 21.6 (6-22) Glucose 106 H (70-99) mg/dL Calcium 9.4 (8.4-10.2) mg/dL Magnesium 2.1 (1.6-2.3) mg/dL Total Bilirubin 0.3 (0.2-1.3) mg/dL AST 34 (17-59) IU/L ALT 46 (<50) IU/L Alkaline Phosphatase 81 (38-126) U/L Total Protein 7.8 (6.3-8.2) g/dL Albumin 4.7 (3.5-5.0) g/dL Globulin 3.1 (1.7-4.1) g/dL Albumin/Globulin Ratio 1.5 (1.0-2.8) MDM Narrative Medical decision making narrative: Patient is a 35-year-old male with a past medical history of drug abuse SI coming into the ED for evaluation of dehydration. Patient was recently seen here yesterday for SI was cleared by DCR was set up with the care team, he states that he is not having any active SI or HI, he will be states that everything was very stressful yesterday and feels like he has not been able to catch up with these electrolytes therefore came into have repeat lab work and some fluids. Patient without any active SI or HI, he feels safe with his safety plan, patient had lab work that was unremarkable, with the patient received 1 L normal saline and was instructed to follow up with primary care in outpatient setting he was given strict precautions verbalized understand agrees to being discharged home with outpatient follow up Discharge Plan Departure Patient Disposition: Home Clinical Impression: Normal exam Prescriptions: No Action ofloxacin 0.3 % drops 1 drp ophthalmic (eye) Q4H Qty: 5 0RF valacyclovir 500 mg tablet 500 mg PO BID omeprazole-sodium bicarbonate 40-1.1 mg-gram capsule 1 cap PO QAM dextroamphetamine-amphetamine 15 mg tablet PO benzonatate 200 mg capsule 200 mg PO BID PRN (Reason: cough) Qty: 28 0RF Referrals: Joshua Fernandez PA-C [Primary Care Provider, Medical] Stand Alone Forms: Patient Portal/API
[2025-10-18 19:20] LABS: Add Manual Diff / Slide Review NO; Hematocrit 41.4 % (41-53); Hemoglobin 14.1 g/dL (13.5-17.5); Lymphocytes Absolute Auto 2400 /uL (1100-4500); Mean Corpuscular HGB Conc 34.1 % (30-36); Mean Corpuscular Hemoglobin 28.7 PG (26-34); Mean Corpuscular Volume 84.1 fL (80-100); Platelet Count 307 X10^3/uL (150-400)
[2025-10-18] MEDS: SODIUM CHLORIDE 0.9% 1,000 ML 1000 ML IV (19:26)
[2025-10-18 19:35] LABS: Alanine Aminotransferase 46 IU/L (<50); Albumin 4.7 g/dL (3.5-5.0); Albumin Globulin Ratio 1.5 (1.0-2.8); Alkaline Phosphatase 81 U/L (38-126); Blood Urea Nitrogen 21 mg/dL (9-20); Calcium 9.4 mg/dL (8.4-10.2); Carbon Dioxide 30 mmol/L (22-32); Chloride 104 mmol/L (98-107); Estimated Glomerular Filt Rate > 60 mL/min (>60); Globulin 3.1 g/dL (1.7-4.1); Glucose 106 mg/dL (70-99); HEMOLYSIS < 15 (0-50); Magnesium 2.1 mg/dL (1.6-2.3); Potassium 4.2 mmol/L (3.4-5.1); Sodium 142 mmol/L (137-145); Total Protein 7.8 g/dL (6.3-8.2)
--- NOTE | 2025-10-18 19:39 | PC.NURSE ---
Gave patient cup of ice water and Starry soda while he's getting his IV fluids.
--- NOTE | 2025-10-18 19:48 | CM.SWNOTE ---
ED LICENSED CLINICAL PSYCHOLOGIST Note: LICENSED CLINICAL PSYCHOLOGIST called to Registration desk per pt request upon check in. LICENSED CLINICAL PSYCHOLOGIST met with patient, familiar with patient due to presentation the previous day. Patient states he did not recieve a call from [facility] as discussed with [facility] the previous night. Patient checking into ED for dehydration. LICENSED CLINICAL PSYCHOLOGIST called [facility] and updated phone number that patient provided yesterday, updated phone number in EMR. PRINCESS Pearce called this LICENSED CLINICAL PSYCHOLOGIST and confirmed patient phone number and states she will call this evening. LICENSED CLINICAL PSYCHOLOGIST provided pt with [facility] phone number in case they are not able to connect with him this evening and he can call for follow up. Letitia Shannon, SAIL REPAIRER
== END 2025-10-18 20:03 | disposition home or self-care (01) ==
PROVIDERS: Emergency Provider Student in an Organized Health Care Education/Training Program; PCP Physician Assistant Medical
DX: Z71.1 Person with feared health complaint in whom no diagnosis is made (principal)
CPT/HCPCS: 36415; 80053; 83735; 85025; 99284; J7030